=== PATIENT | female | born 1980 | race Caucasian/White ===

== ENCOUNTER 2023-02-22 16:48 | Inpatient (IN) | payer SELFPAY ==
--- NOTE | ~2023-02-22 | CT_ITS ---
EXAMINATION: CT FEMUR LEFT WITH IV CONTRAST CLINICAL INFORMATION: Swelling. Concern for abscess. COMPARISON: None available. TECHNIQUE: Contiguous axial noncontrast CT scan images of the left femur were obtained after the intravenous administration of 85 mL Omnipaque 350. Sagittal and coronal reformatted images also obtained. This CT examination was performed using dose optimization techniques as appropriate, variously including the following: *Automated exposure control *Adjustment of mA and/or kV according to patient size (this includes techniques or standardized protocols for targeted exams where dose is matched to indication/reason for exam; i.e. extremities or head) *Use of iterative reconstruction technique DLP: 371 mGy-cm FINDINGS: The bony structures are within normal limits. The visualized intrapelvic structures are unremarkable. Subcutaneous varices are noted on the left. There is significant skin thickening beginning left mid anterior lateral thigh extending inferiorly to the level of the knee intermixed with varices. There are patchy areas of low density within the areas of skin and subcutaneous thickening with subcutaneous infiltration which is also most pronounced anteriorly and laterally. CT/CT femur LT w IV con IMPRESSION: Extensive skin thickening and subcutaneous infiltration mid to lower anterolateral thigh with patchy areas of low density within the areas of skin thickening and subcutaneous infiltration. Findings are consistent with cellulitis with phlegmon. There are associated left-sided varices along the areas of thickening/cellulitis. Consider ultrasound evaluation to assess for fluid and/or thrombophlebitis. No acute osseous abnormality.
[2023-02-22 17:01] VITALS: BP 122/80; PULSE 110; RESP 16; TEMP 37; O2SAT 97; BMI 26.3
--- NOTE | 2023-02-22 17:06 | ED.GENADULT ---
HPI - General Adult General Chief complaint: Skin/Abscess/Foreign Body Stated complaint: leg pain, doesnt know Time Seen by Provider: 02/22/23 23:20 History of Present Illness HPI narrative: The patient is a 42-year-old woman who uses IV drugs. Over the last several days she has developed a lot of sores to the skin of her left thigh the to her IV drug use. She worries that these could be the result of xylazine use. She was uncertain if she has had a fever prior to coming to the hospital but here she was found to have temperatures as high as 100.7. She says she has pain in the left thigh. She feels that she needs help with her drug abuse. Related Data Home Medications Medication Instructions Recorded Confirmed gabapentin 600 mg tablet 600 mg PO TID 02/23/23 02/23/23 Allergies Allergy/AdvReac Type Severity Reaction Status Date / Time No Known Allergies Allergy Verified 02/22/23 17:01 [No Known Allergies*] Review of Systems Review of Systems: Yes all other systems are reviewed and are negative PMFSH Past Medical History Onset Date is defined in the Problem List Problems that require an onset date and time if occurred within 24 hrs of arrival to the ED Aortic Dissection and Rupture; Neurologic impairment; Cardiopulmonary Arrest; Endotracheal Intubation; Insertion or Replacement of Mechanical Circulatory Assist Device Medical History (Updated 02/23/23 @ 01:43 by Armond Maurer MD) Cocaine use disorder Opioid use disorder Social History Social History Alcohol intake: current Alcohol intake frequency: 3 or more drinks per day Alcohol type: hard liquor Patient Tobacco Use Status: Current everyday Tobacco user Smoked in Last 30 Days: Yes Use of substances other than those prescribed or required for medical reasons: Yes Substance Use Type: Crack/Cocaine and Heroin Substance Use Frequency: Daily Last Used Substance: Hours (ago) Advance Directives: No Advance Directives Information Provided: Yes Nutrition Risks: No Nutritional Risk Patient : No Physical Exam ED Vital Signs: Vital Signs - 24 hr 02/22/23 17:01 02/22/23 20:02 02/22/23 23:42 Temperature 98.6 F 100.8 F H 100.5 F H Pulse Rate 110 H 95 104 H Respiratory Rate 16 18 18 Blood Pressure 122/80 104/79 112/68 Pulse Oximetry 97 97 96 Oxygen Delivery Method Room Air Room Air 02/23/23 00:19 02/23/23 00:34 Temperature 100.7 F H Pulse Rate 100 Respiratory Rate 14 Blood Pressure 90/51 L Pulse Oximetry 95 Oxygen Delivery Method Room Air BMI result Body Mass Index 26.3 Const Other: The patient is a chronically ill-appearing 42-year-old. She is quite disheveled looking. She seems very fatigued. HENMT Other: The face is symmetrical. Mucous membranes moist. Poor dentition. Eyes Other: Pupils are round equal, conjunctivae are clear, extraocular movements intact Neck Neck: Yes no JVD Resp Effort & Inspection: normal respiratory effort Auscultation: clear to auscultation bilaterally Cardio Other: The patient was mildly tachycardic. Otherwise she had a regular rate and rhythm with no murmur. GI Other: Abdomen soft and nontender Skin Other: The patient has a large area of erythema and sores on her left lateral lower thigh just above the knee. These sores are open and oozing purulent material. There is associated cellulitis. There was 1 area of swelling and tenderness that was not ruptured but was fluctuant Neuro Other: The patient was awake and alert. She seems sleepy but coherent. Cranial nerves are grossly intact. She moves her extremities symmetrically. No focal neurologic finding. Extrem Other: The patient has a large area of skin of her left lower lateral thigh which is abnormal with erythema and with several lesions most of which look like abscesses that have spontaneously opened and are draining. There was 1 area of soft tissue swelling and fluctuance which was not open or draining. Course Course Course Narrative: RME- 42 year old female presents for evaluation of wounds to her left thigh and leg. She admits to IV drugs. On exam has multiple abscesses in the area. Plan for labs including blood cultures. The patient is also interested in detox Medications Administered Generic Name Dose Route Start Last Admin Trade Name Freq PRN Reason Stop Dose Admin Acetaminophen 650 mg 02/23/23 00:39 02/23/23 06:28 Acetaminophen 325 Mg Tablet PO 650 mg Q6H PRN Administration Pain, Mild (Pain Scale 1-3) Enoxaparin Sodium 40 mg 02/23/23 00:45 02/23/23 01:45 Enoxaparin Sodium 40 Mg/0.4 Ml Syringe SUBCUT 40 mg BEDTIME NICOLLE Administration Cefepime HCl 2 gm/ Sodium 50 mls @ 100 mls/hr 02/23/23 02:00 02/23/23 04:10 Chloride IV Infused Q8H NICOLLE Infusion Sodium Chloride 3 ml 02/23/23 08:00 02/23/23 07:31 0.9 % Sodium Chloride Flush 3 Ml Syringe IVFLUSH Not Given QSHIFT NICOLLE Discontinued Medications Generic Name Dose Route Start Last Admin Trade Name Freq PRN Reason Stop Dose Admin Sodium Chloride 1,000 mls @ 999 mls/hr 02/23/23 00:38 02/23/23 02:14 Ns IV 02/23/23 01:38 Infused .Q1H1M ONE Infusion Vancomycin HCl 1,000 mg/ 270 mls @ 270 mls/hr 02/23/23 00:38 02/23/23 01:37 Sodium Chloride IV 02/23/23 01:37 Not Given ONCE ONE Vancomycin HCl 1,500 mg/ 500 mls @ 333.333 mls/hr 02/23/23 00:46 02/23/23 03:16 Sodium Chloride IV 02/23/23 02:15 Infused ONCE ONE Infusion Sodium Chloride 1,000 mls @ 999 mls/hr 02/23/23 02:03 02/23/23 03:24 Ns IV 02/23/23 03:03 Infused .Q1H1M ONE Infusion Iohexol 85 ml 02/23/23 01:49 02/23/23 01:50 Iohexol 350 Mg/Ml 100 Ml Infus..Btl IV 02/23/23 01:50 85 ml ONCE ONE Administration Ketorolac Tromethamine 30 mg 02/22/23 23:24 02/22/23 23:56 Ketorolac Tromethamine 30 Mg/Ml Vial IM 02/22/23 23:25 30 mg ONCE ONE Administration Lidocaine HCl 1 appl 02/23/23 00:23 02/23/23 00:40 Lidocaine 4 % Cream Kit TOPICAL 02/23/23 00:24 1 appl ONCE ONE Administration Protocol Lidocaine HCl 2 ml 02/23/23 01:01 02/23/23 01:44 Lidocaine Hcl 2% 2 Ml Vial INFILTRATI 02/23/23 01:02 2 ml ONCE ONE Administration Procedures Abscess I/D Site: lower extremity Side (if applicable): left Local Anesthetic: lidocaine 2% Amount of anesthesia used (mL): 2 Technique: incised with blade Amount of fluid expressed (mL): 10 Sent for culture/gram staining?: Yes Irrigation: No Packing used?: none Medical Decision Making Medical Decision Making [facility] Narrative: The patient is a 42-year-old who injects IV opioids and to recently has developed redness, swelling, and pain as well as what seemed to be multiple adjacent ruptured abscesses. There seemed to be 1 area of swelling which seems like a non ruptured abscess. I performed an incision on this area of swelling after prepping the skin with Betadine and administering 2% lidocaine infiltrated for local anesthesia. An incision made through the center of the swelling released a moderate amount of thin pus. This was cultured The patient had a fever in the emergency room with a temperature of 100.7 degrees. Blood cultures were obtained. A wound culture was obtained. The patient was started on vanc completion. The patient had a CT scan to further evaluate the soft tissues of the leg associated with these abscesses and infection. The patient was started on vancomycin. The patient will be admitted to the hospitalist service. Lab Data 02/23/23 05:58 02/23/23 05:58 Labs: Lab Results 02/22/23 02/22/23 Range/Units 20:30 23:43 WBC 7.1 (4.8-10.8) X10*3/uL RBC 4.24 (4.20-5.50) X10*6/uL Hgb 12.6 (12.0-16.0) g/dl Hct 36.6 L (37.0-47.0) % MCV 86.3 (80.0-98.0) fL MCH 29.7 (27.0-33.0) pg MCHC 34.4 (31.0-35.0) g/dl RDW 12.8 (11.0-16.0) % Plt Count 494 H (160-400) X10*3/uL MPV 9.0 L (9.4-12.3) fL Immature Gran % (Auto) 0.7 H (0.0-0.4) % Neut % (Auto) 66.2 (45-73) % Lymph % (Auto) 21.0 (20-40) % Edgar % (Auto) 9.9 (2-11) % Eos % (Auto) 1.6 (0-4) % Baso % (Auto) 0.6 (0-2) % Lymph # (Auto) 1.5 (1.2-4.9) X10*3/uL Edgar # (Auto) 0.7 (0.1-1.2) X10*3/uL Eos # (Auto) 0.1 (0.0-0.4) X10*3/uL Baso # (Auto) 0.0 (0.0-0.2) X10*3/uL Abs Immat Gran (auto) 0.05 H (0.00-0.03) X10*3/uL Absolute Neuts (auto) 4.7 (2.0-8.3) x10*3/uL Absolute Nucleated RBC 0.000 (0.0-0.012) X10*3/uL Nucleated RBC % (auto) 0.0 (0.0-0.2) /100WBC Smear Tech's Comments VERIFIED Sodium 138 (135-145) mmol/L Potassium 3.3 (3.3-5.1) mmol/L Chloride 105 (96-108) mmol/L Carbon Dioxide 23 (22-29) mmol/L Anion Gap 13 (12-20) BUN 5 L (9-16) mg/dL Creatinine 0.60 (0.5-1.4) mg/dL Estim Creat Clear Calc 95.5 Estimated GFR > 60 Random Glucose 104 (60-115) mg/dL Lactic Acid 1.1 (0.5-2.0) mmol/L Calcium 9.4 (8.4-10.2) mg/dL Total Bilirubin 0.2 (0.0-1.0) mg/dL AST 18 (5-31) U/L ALT 14 (0-31) U/L Alkaline Phosphatase 68 (39-117) U/L Total Creatine Kinase 41 (26-140) U/L C-Reactive Protein 5.54 H (< or = 0.50) mg/dL Total Protein 8.2 H (6.5-8.0) g/dL Albumin 3.6 (3.5-5.0) g/dL Lipase 10 (8-78) U/L Beta HCG, Quant < 2 mIU/mL Urine Opiates Screen POSITIVE H (Not Detect) Urine Fentanyl Screen POSITIVE H (Not Detect) Ur Barbiturates Screen Not Detected (Not Detect) Ur Phencyclidine Scrn Not Detected (Not Detect) Ur Amphetamines Screen Not Detected (Not Detect) U Benzodiazepines Scrn Not Detected (Not Detect) Urine Cocaine Screen POSITIVE H (Not Detect) U Marijuana (THC) Screen Not Detected (Not Detect) Ethyl Alcohol < 10 mg/dL Discharge Plan Discharge Clinical Impression: Cellulitis and abscess of left leg Patient Disposition: Admitted As Inpatient
[2023-02-22 20:02] VITALS: BP 104/79; PULSE 95; RESP 18; TEMP 38.2; O2SAT 97
[2023-02-22 20:38] LABS: Basophils Percent Auto 0.6 % (0-2); Hemoglobin 12.6 g/dl (12.0-16.0); PLT CLUMP 1; Red Cell Distribution Width 12.8 % (11.0-16.0); SCAN SMEAR FLAG 1
[2023-02-22 20:40] LABS: Eosinophils Absolute Auto 0.1 X10*3/uL (0.0-0.4); Eosinophils Percent Auto 1.6 % (0-4); Hematocrit 36.6 % (37.0-47.0); Imm Gran Abs Auto 0.05 X10*3/uL (0.00-0.03); Imm Gran Pct Auto 0.7 % (0.0-0.4); Lymphocytes Absolute Auto 1.5 X10*3/uL (1.2-4.9); MANUAL DIFF FLAG SCAN; Mean Corpuscular HGB Conc 34.4 g/dl (31.0-35.0); Mean Corpuscular Hemoglobin 29.7 pg (27.0-33.0); Mean Corpuscular Volume 86.3 fL (80.0-98.0); Monocytes Absolute Auto 0.7 X10*3/uL (0.1-1.2); Monocytes Percent Auto 9.9 % (2-11); Neutrophils Absolute Auto 4.7 x10*3/uL (2.0-8.3); Neutrophils Percent Auto 66.2 % (45-73); Red Blood Count 4.24 X10*6/uL (4.20-5.50)
[2023-02-22 20:41] LABS: White Blood Count 7.1 X10*3/uL (4.8-10.8)
[2023-02-22 20:50] LABS: Lactic Acid 1.1 mmol/L (0.5-2.0)
[2023-02-22 20:54] LABS: Alanine Aminotransferase 14 U/L (0-31); Albumin Level 3.6 g/dL (3.5-5.0); Alkaline Phosphatase 68 U/L (39-117); Anion Gap 13 (12-20); Aspartate Amino Transferase 18 U/L (5-31); Bilirubin Total 0.2 mg/dL (0.0-1.0); Blood Urea Nitrogen 5 mg/dL (9-16); Calcium 9.4 mg/dL (8.4-10.2); Carbon Dioxide 23 mmol/L (22-29); Chloride 105 mmol/L (96-108); Creatinine Clr Calc Pharmacy 95.5; Estimated Glomerular Filt Rate > 60; Glucose Random 104 mg/dL (60-115); Lipase 10 U/L (8-78); Potassium 3.3 mmol/L (3.3-5.1); Sodium 138 mmol/L (135-145); Total Protein 8.2 g/dL (6.5-8.0)
[2023-02-22 20:58] LABS: Ethanol < 10 mg/dL
[2023-02-22 21:03] LABS: HCG Quantitative < 2 mIU/mL
[2023-02-22 21:10] LABS: Platelet Count 494 X10*3/uL (160-400); SLIDE REVIEW VERIFIED
[2023-02-22 23:42] VITALS: BP 112/68; PULSE 104; RESP 18; TEMP 38.1; O2SAT 96
[2023-02-22 23:55] LABS: Amphetamine Screen Urine Not Detected (Not Detect); Barbiturates, Urine Not Detected (Not Detect); Benzodiazepines Screen Urine Not Detected (Not Detect); Cannabinoid Screen Urine Not Detected (Not Detect); Cocaine Screen Urine POSITIVE (Not Detect); Fentanyl, urine POSITIVE (Not Detect); Opiate Screen Urine POSITIVE (Not Detect); Phencyclidine Screen Urine Not Detected (Not Detect)
[2023-02-22] MEDS: Ketorolac Tromethamine 30 MG/ML VIAL IM (23:56)
[2023-02-23] VITALS (14 sets, daily range): BP systolic 85–123; BP diastolic 51–79; PULSE 74–100; RESP 14–18; TEMP 36.1–38.2; O2SAT 95–99; BMI 27.0
[2023-02-23 00:30] LABS: C Reactive Protein 5.54 mg/dL (< or = 0.50)
[2023-02-23] MEDS: Lidocaine 4 % Cream KIT 1 APPL TOPICAL (00:40)
--- NOTE | 2023-02-23 00:41 | PM.IMHP ---
History of Present Illness Date of Service: 02/23/23 Chief Complaint: Skin infection This is a 42-year-old female with pertinent history of IV drug use disorder who presents to the emergency department for evaluation of skin infections. Patient states that over the last several days she developed multiple wounds/sores over her left thigh which have been draining. On the day of presentation, patient admits fevers and chills along with purulent foul-smelling drainage from her left thigh. Denies skin infection in the past. Also has been having left thigh pain. She states she last used IV drugs on the day of presentation. No chest discomfort, palpitations, shortness of breath, abdominal pain, changes in urinary or bowel habits. In the emergency department, patient was found to be septic and I and D performed by ER physician. Review of Systems Constitutional: Constitutional: Reports chills, Reports fatigue, Reports fever(s) and Reports lethargy Cardiovascular: Cardiovascular: Reports no additional cardiovascular complaints Respiratory: Respiratory: Reports no additional respiratory complaints Gastrointestinal: Gastrointestinal: Reports no additional gastrointestinal complaints Genitourinary: Genitourinary: Reports no additional female genitourinary complaints Endocrine: Endocrine: Reports fatigue [facility] Medical History (Updated 02/23/23 @ 01:43 by Armond Maurer MD) Cocaine use disorder Opioid use disorder Functional capacity: independent ambulation Pertinent family history: No family history of early CAD Social History Alcohol intake: current Alcohol intake frequency: 3 or more drinks per day Alcohol type: hard liquor Patient Tobacco Use Status: Current everyday Tobacco user Smoked in Last 30 Days: Yes Use of substances other than those prescribed or required for medical reasons: Yes Substance Use Type: Crack/Cocaine and Heroin Substance Use Frequency: Daily Last Used Substance: Hours (ago) Advance Directives: No Advance Directives Information Provided: Yes Nutrition Risks: No Nutritional Risk Patient : No Meds Allergies Allergy/AdvReac Type Severity Reaction Status Date / Time No Known Allergies Allergy Verified 02/22/23 17:01 [No Known Allergies*] Active Medications: Current Medications Enoxaparin Sodium (Enoxaparin Sodium 40 Mg/0.4 Ml Syringe) 40 mg SUBCUT Q24H NICOLLE Sodium Chloride (Ns) 1,000 mls @ 999 mls/hr IV .Q1H1M ONE Stop: 02/23/23 01:38 Vancomycin HCl 1,000 mg/ (Sodium Chloride) 270 mls @ 270 mls/hr IV ONCE ONE Stop: 02/23/23 01:37 Pharmacy Consult (Consult Rx Vancomycin Dosing) 1 each MISCELLANE DAILY PRN PRN Reason: Consult order Sodium Chloride (0.9 % Sodium Chloride Flush 3 Ml Syringe) 3 ml IVFLUSH QSHIFT COUNTS INCLUDE 234 BEDS AT THE [facility] Home Medications Medication Instructions Recorded Confirmed Last Taken Type gabapentin 600 mg tablet 600 mg PO TID 02/23/23 02/23/23 Unknown History Physical Exam Vital Signs and Narrative: Vital Signs: Last Vital Signs Temp 100.7 F H 02/23/23 00:40 Pulse 98 02/23/23 00:40 Resp 16 02/23/23 00:40 BP 100/55 L 02/23/23 00:40 Pulse Ox 96 02/23/23 00:40 O2 Del Method Room Air 02/23/23 00:40 BMI result Body Mass Index 26.3 Middle-aged female lying in bed in no distress Neck supple, no JVD Regular rate and rhythm, S1-S2 heard Regular breath sounds bilaterally, no wheezing or crackles appreciated Abdomen soft nontender, no guarding, no rigidity Patient is lethargic but awakens to verbal stimulus, is oriented to self, place, time and person ; no focal deficits Skin colon as pictured below Psych: Drowsy No pedal edema Skin: Other: Results Labs 02/22/23 20:30 02/22/23 20:30 Labs: Laboratory Results - last 24 hr 02/22/23 02/22/23 20:30 23:43 MCV 86.3 MCH 29.7 MCHC 34.4 RDW 12.8 Plt Count 494 H MPV 9.0 L Immature Gran % (Auto) 0.7 H Neut % (Auto) 66.2 Lymph % (Auto) 21.0 [place]morton % (Auto) 9.9 Eos % (Auto) 1.6 Baso % (Auto) 0.6 Lymph # (Auto) 1.5 [place]morton # (Auto) 0.7 Eos # (Auto) 0.1 Baso # (Auto) 0.0 Abs Immat Gran (auto) 0.05 H Absolute Neuts (auto) 4.7 Absolute Nucleated RBC 0.000 Nucleated RBC % (auto) 0.0 Smear Tech's Comments VERIFIED Anion Gap 13 Estim Creat Clear Calc 95.5 Estimated GFR > 60 Random Glucose 104 Lactic Acid 1.1 Calcium 9.4 Total Bilirubin 0.2 AST 18 ALT 14 Alkaline Phosphatase 68 Total Creatine Kinase 41 C-Reactive Protein 5.54 H Total Protein 8.2 H Albumin 3.6 Lipase 10 Beta HCG, Quant < 2 Urine Opiates Screen POSITIVE H Urine Fentanyl Screen POSITIVE H Ur Barbiturates Screen Not Detected Ur Phencyclidine Scrn Not Detected Ur Amphetamines Screen Not Detected U Benzodiazepines Scrn Not Detected Urine Cocaine Screen POSITIVE H U Marijuana (THC) Screen Not Detected Ethyl Alcohol < 10 Assessment and Plan (1) Sepsis due to cellulitis: Status: Acute Plan This is a 42-year-old female with pertinent history of IV drug use disorder who presents to the emergency department for evaluation of skin infections. #. Sepsis due to left thigh purulent cellulitis with underlying abscesses: Resuscitating with IV crystalloids. Initiating empiric IV antibiotics. Lactic acid and blood culture obtained. I&D performed by ER physician. Consulting general surgery #. Opioid and cocaine use disorder: Monitor for withdrawal, consulted Addiction Team DVT prophylaxis: Lovenox Full code Admit as inpatient and will require two night minimum hospital stay for IV antibiotics (as above), which is not possible in a lesser acute setting. Quality Stroke Does the patient have a stroke diagnosis?: No VTE Prior VTE?: No VTE Risk Level:: Medical - moderate - high VTE Device Contraindication: Treatment Not Indicated VTE Drug Contraindication: N/A - Med Ordered
[2023-02-23] MEDS: 0.9 % Sodium Chloride 1,000 ML 999 ML IV ×2 (00:59→02:14)
[2023-02-23] MEDS: vancomycin HCL 1,500 MG in 0.9 % Sodium Chloride 500 ML 333.33 MG IV (01:45)
[2023-02-23] MEDS: Enoxaparin Sodium 40 MG/0.4 ML SYRINGE SUBCUT ×2 (01:45→21:30)
[2023-02-23] MEDS: iohexoL 350 MG/ML 100 ML INFUS..BTL 85 ML IV (01:50)
--- NOTE | 2023-02-23 01:56 | MHC.EDTECH ---
This tech took over care of patient at 0100AM, vitals and rounds completed,Patient's BP is low 86/52 RN and hospitalist aware, repeated and its 93/58 Temp is 99.7 Belonging list completed and copy placed in chart.(All belongings in [facility] ROOM) Patient requested to keep her bra on, patient consented to this tech and [facility] Cristin to check inside bra. At this time I tried to lower the head of the bed and was unable to ,checked for reason there was another patient belongings bag and this tech noticed small baggies with white powder substance. At this time the tech took bag to CC Jaleesa and then went straight to security,as the disposed of substance and then rest of belongings placed in [facility],RN Aurelia was at bedside during this time. Patient was calm and cooperative, and all bed linen was changed and is now sleeping comfortably.
--- NOTE | 2023-02-23 02:39 | MHC.EDTECH ---
Vitals taken BP is 108/77
[2023-02-23] MEDS: cefEPime HCl 2 GM in 0.9 % Sodium Chloride 50 ML IV ×3 (03:31→18:33)
--- NOTE | 2023-02-23 03:43 | PC.NURSE ---
Dr. Lopez informed of patient's BP running soft 85-99/55, P 78, O2 Sat 97% RA. I L of NS bolus administered per MD order with improvement in BP noted 99-106/56, P 78-81, O2 Sat 97% RA.
--- NOTE | 2023-02-23 03:48 | PC.NURSE ---
COWS and CIWA assessments completed, COWS score 1, CIWA score 2, no s/s of active withdrawal noted
--- NOTE | 2023-02-23 06:17 | MHC.EDTECH ---
Hourly rounds and vitals completed, patient has a oral temp of 100.1,RN Aurelia made aware,patient is resting comfortably at this time and call palomino in reach.
--- NOTE | 2023-02-23 06:19 | PC.NURSE ---
T 100.1, BP 106/70, P 81. Patient medicated with Tylenol 650 mg PO. DMildred Lopez notified, no new orders at this time.
[2023-02-23 06:25] LABS: MANUAL DIFF FLAG NO
[2023-02-23 06:28] LABS: Basophils Percent Auto 0.6 % (0-2); Eosinophils Absolute Auto 0.1 X10*3/uL (0.0-0.4); Eosinophils Percent Auto 2.3 % (0-4); Hematocrit 30.8 % (37.0-47.0); Hemoglobin 10.5 g/dl (12.0-16.0); Imm Gran Abs Auto 0.04 X10*3/uL (0.00-0.03); Imm Gran Pct Auto 0.8 % (0.0-0.4); Lymphocytes Absolute Auto 1.4 X10*3/uL (1.2-4.9); Lymphocytes Percent Auto 29.2 % (20-40); Mean Corpuscular HGB Conc 34.1 g/dl (31.0-35.0); Mean Platelet Volume 8.8 fL (9.4-12.3); Monocytes Absolute Auto 0.6 X10*3/uL (0.1-1.2); Monocytes Percent Auto 12.1 % (2-11); Neutrophils Absolute Auto 2.7 x10*3/uL (2.0-8.3); Platelet Count 393 X10*3/uL (160-400); White Blood Count 4.9 X10*3/uL (4.8-10.8)
[2023-02-23] MEDS: Acetaminophen 325 MG TABLET 650 MG PO (06:28)
[2023-02-23 06:41] LABS: Anion Gap 11 (12-20); Blood Urea Nitrogen 5 mg/dL (9-16); Calcium 7.7 mg/dL (8.4-10.2); Carbon Dioxide 22 mmol/L (22-29); Chloride 109 mmol/L (96-108); Creatinine Clr Calc Pharmacy 98.7; Estimated Glomerular Filt Rate > 60; Glucose Random 99 mg/dL (60-115); Potassium 3.4 mmol/L (3.3-5.1); Sodium 139 mmol/L (135-145)
--- NOTE | 2023-02-23 07:26 | PHA.PROG ---
Admission Date/Time: February 23, 2023 00:40 Indication: skin and skin structure Weight in k.967 kg Adjusted body weight in Kg: [place] body weight in Kg: Obesity Dosing Indication % IBW:26.3 kg/m^2 Serum Creatinine - Last 168 Hours 02/22/23 02/23/23 20:30 05:58 Creatinine 0.60 0.58 Estimated CrCl and GFR - Last 168 Hours 02/22/23 02/23/23 20:30 05:58 Estim Creat Clear Calc 95.5 98.7 Estimated GFR > 60 > 60 Vancomycin Loading Dose: 1500mg Current Vancomycin Dosing Regimen: 1000 Q12H Vancomycin Monitoring using AUC goal of 400 - 600 range with trough as surrogate marker: 451 Date and Time for next Vancomycin Level to be drawn: 02/24/23 @1200 Pharmacist Comments on Vancomycin Plan: Predicted trough:12.6 mg/L, will continue to monitor renal function and adjust as necessary. Vancomycin dosing will take advantage of [employer] as a clinical decision support tool that uses Bayesian modeling to calculate individual patient's pharmacokinetic parameters and forecast the patient's drug concentration time course with the target goal AUC 24 range of 400 - 600 mg/L/hr.
--- NOTE | 2023-02-23 07:47 | PHA.MEDREC ---
Pharmacy Consult ? Medication Reconciliation Pharmacy has completed the medication reconciliation. Checked med rec done overnight
--- NOTE | 2023-02-23 07:55 | PC.NURSE ---
assumed care of pt at 0700. pt a&o x4, pleasant, calm, and cooperative. pt woken up for breakfast. temp rechecked post tylenol. 99.8. pt ambulated to bathroom with steady gait, back to bed and hooked back up to bedside monitor. pt asking for belongings. pt told that they are in [place] and she will not be able to obtain them until she is discharged. pt understands and is cooperative. call palomino within reach. plan of care ongoing.
[2023-02-23] MEDS: methADONE HCl 20 MG/2 ML ORAL.CONC PO ×2 (10:49→15:45)
--- NOTE | 2023-02-23 10:58 | P.CONGS_ITS ---
History of Present Illness Consult details Consult date: 02/23/23 Narrative: This is a 42-year-old female with pertinent history of IVDA who presents to the emergency department for evaluation of open wounds of her left upper thigh. Patient states that over the last several days she developed redness and multiple wounds/sores over her left thigh. She does admit to injecting in her left thigh. She has had some purulent drainage from these. She admits to fevers and chills. In the ED, CT left femur was obtained which showed diffuse skin thickening and phlegmon of her anterolateral left thigh. There was one undraining fluctuant area which was incised and drained in the ED. She was admitted to the hospitalist service for further treatment of her left leg cellulitis and sepsis. She is on IV vanco. Review of Systems 2 Constitutional: Constitutional: Reports chills and Reports fever(s) ENT: Denies dizziness Cardiovascular: Cardiovascular: Denies chest pain and Denies dyspnea Respiratory: Respiratory: Denies cough and Denies dyspnea Gastrointestinal: Gastrointestinal: Denies abdominal pain, Denies nausea and Denies vomiting Integumentary/Breasts: Skin/Breast: Reports as per HPI Neurologic: Denies dizziness PMFSH Past Medical History Medical History (Updated 02/23/23 @ 01:43 by Armond Maurer MD) Cocaine use disorder Opioid use disorder Social History Social History Household Members: Other Do you presently have visiting nurse or other home services: No Alcohol intake: current Alcohol intake frequency: 3 or more drinks per day Alcohol type: hard liquor Patient Tobacco Use Status: Current someday Tobacco user Tobacco use type: Cigarette Cigarettes Per Day: 10 Substance Use Type: Crack/Cocaine and Heroin Meds Allergies Allergy/AdvReac Type Severity Reaction Status Date / Time No Known Allergies Allergy Verified 02/22/23 17:01 [No Known Allergies*] Active Medications: Current Medications Acetaminophen (Acetaminophen 325 Mg Tablet) 650 mg PO Q6H PRN PRN Reason: Pain, Mild (Pain Scale 1-3) Last Admin: 02/23/23 06:28 Dose: 650 mg Enoxaparin Sodium (Enoxaparin Sodium 40 Mg/0.4 Ml Syringe) 40 mg SUBCUT BEDTIME [facility] Last Admin: 02/23/23 01:45 Dose: 40 mg Cefepime HCl 2 gm/ Sodium (Chloride) 50 mls @ 100 mls/hr IV Q8H [facility] Last Admin: 02/23/23 10:45 Dose: 100 mls/hr Vancomycin HCl 1,000 mg/ (Sodium Chloride) 270 mls @ 270 mls/hr IV Q12H [facility] Melatonin (Melatonin 3 Mg Tablet) 6 mg PO BEDTIME PRN PRN Reason: Insomnia Ondansetron HCl (Ondansetron Hcl 4 Mg/2 Ml Vial) 4 mg IVPUSH Q8H PRN PRN Reason: Nausea and Vomiting Pharmacy Consult (Consult Rx Vancomycin Dosing) 1 each MISCELLANE DAILY PRN PRN Reason: Consult order Sodium Chloride (0.9 % Sodium Chloride Flush 3 Ml Syringe) 3 ml IVFLUSH QSHIFT [facility] Last Admin: 02/23/23 07:31 Dose: Not Given Home Medications Medication Instructions Recorded Confirmed Last Taken Type gabapentin 600 mg tablet 600 mg PO TID 02/23/23 02/23/23 Unknown History Physical Exam 2 Vital Signs: Vital Signs: Last Vital Signs Temp 99.8 F 02/23/23 07:42 Pulse 81 02/23/23 06:14 Resp 16 02/23/23 06:14 BP 106/70 02/23/23 06:14 Pulse Ox 97 02/23/23 06:14 O2 Del Method Room Air 02/23/23 06:14 BMI result Body Mass Index 26.3 Const: General: comfortable, no acute distress and alert Nutritional Appearance: malnourished and thin Orientation/consciousness: patient oriented x3 Resp: Effort & Inspection: normal respiratory effort Skin: Other: left anterolateral thigh with multiple open sores with surrounding erythema and induration; distally there is an area that was I&D that is opening and draining scant purulence ; no further fluctuance appreciated Neuro: General: patient oriented x3 and moves all extremities Results Labs 02/23/23 05:58 02/23/23 05:58 Labs: Abnormal lab results 02/22/23 02/22/23 02/23/23 Range/Units 20:30 23:43 05:58 RBC 3.50 L (4.20-5.50) X10*6/uL Hgb 10.5 L (12.0-16.0) g/dl Hct 36.6 L 30.8 L (37.0-47.0) % Plt Count 494 H (160-400) X10*3/uL MPV 9.0 L 8.8 L (9.4-12.3) fL Immature Gran % (Auto) 0.7 H 0.8 H (0.0-0.4) % [place]ward % (Auto) 12.1 H (2-11) % Abs Immat Gran (auto) 0.05 H 0.04 H (0.00-0.03) X10*3/uL Chloride 109 H (96-108) mmol/L Anion Gap 11 L (12-20) BUN 5 L 5 L (9-16) mg/dL Calcium 7.7 L D (8.4-10.2) mg/dL C-Reactive Protein 5.54 H (< or = 0.50) mg/dL Total Protein 8.2 H (6.5-8.0) g/dL Urine Opiates Screen POSITIVE H (Not Detect) Urine Fentanyl Screen POSITIVE H (Not Detect) Urine Cocaine Screen POSITIVE H (Not Detect) Short CBC 02/22/23 02/23/23 Range/Units 20:30 05:58 WBC 7.1 4.9 (4.8-10.8) X10*3/uL Hgb 12.6 10.5 L (12.0-16.0) g/dl Hct 36.6 L 30.8 L (37.0-47.0) % Plt Count 494 H 393 (160-400) X10*3/uL BMP 02/22/23 02/23/23 20:30 05:58 Sodium 138 139 Potassium 3.3 3.4 Chloride 105 109 H Carbon Dioxide 23 22 BUN 5 L 5 L Creatinine 0.60 0.58 Calcium 9.4 7.7 L D Cardiac Enzymes 02/22/23 Range/Units 20:30 Total Creatine Kinase 41 (26-140) U/L Liver Function 02/22/23 Range/Units 20:30 Total Bilirubin 0.2 (0.0-1.0) mg/dL AST 18 (5-31) U/L ALT 14 (0-31) U/L Alkaline Phosphatase 68 (39-117) U/L Albumin 3.6 (3.5-5.0) g/dL All other labs normal. Assessment and Plan (1) Cellulitis and abscess of left leg: Status: Acute (2) Opioid use disorder: Status: Acute Plan 42 year old female with hx of IVDA who presents with left thigh cellulitis and abscess after injecting drugs. The open wounds are generally clean appearing and there is currently no further areas of fluctuance that need to be drained. Recommend continuing abx, and daily local wound care. Can cleanse wounds with saline and apply silver alginate to the open more proximal wounds followed by fluffs and kerlix wrap. Change daily. Procedures Date of Service Date of Service: 02/23/23
--- NOTE | 2023-02-23 11:23 | PC.NURSE ---
admission report complete. awaiting transport to inpatient bed.
--- NOTE | 2023-02-23 12:19 | PC.NURSE ---
Pt admitted to 361 from the ER where she presented with left thigh wounds . Pt reports shes homeless and reports daily use of heroin cocaine and alcohol use . Pt oriented to the room and call [facility] system along with unit protocol .
--- NOTE | 2023-02-23 14:32 | PM.EVENT ---
Event Note Date of Service: 02/23/23 Event Note: Chart reviewed patient examined. Now admits to increased amounts of alcohol daily and mild withdrawal symptoms. Has received methadone will start on CIWA protocol/phenobarb protocol and adjust as indicated Time Spent With Patient Time: Total time managing care of this patient today ____ minutes.
--- NOTE | 2023-02-23 14:33 | MHC.CM.PN ---
CM met with pt., she was feeling very sick, so kept it brief. Pt is homeless, she was staying at various friend's places. She said her PCP is at [facility] in [place], CM called to find out who PCP is and pt. is inactive there. She said she has [employer] for ins. Discussed HCP, she is willing to complete one here, can re-approach when she is feeling better. Cm to follow and assist with DC plan.
[2023-02-23] MEDS: PHENobarbitaL sodium 130 MG/ML IM ONCE 184 MG IM (15:24)
[2023-02-23] MEDS: vancomycin HCL 1,000 MG in 0.9 % Sodium Chloride 250 ML 270 MG IV (15:25)
[2023-02-23] MEDS: Gabapentin 600 MG TABLET PO ×2 (15:25→21:29)
[2023-02-23] MEDS: 0.9 % Sodium Chloride Flush 3 ML SYRINGE IVFLUSH ×2 (15:46→21:34)
--- NOTE | 2023-02-23 17:43 | HO.ADDICT_ITS ---
History of Present Illness Date of Service: 02/23/2023 Chief Complaint: Skin Infection Reason for Consult: OUD Requesting physician: Tony Arizmendi HPI Narrative: Patient is a 42 year old female with OUD currently medically admitted with cellulitis of the leg. She reported during ED admission last use was prior to presenting in ED. Seen by this senior writer earlier this am and noted to be resting, woke to voice, but fell back to sleep quickly. Methadone 20mg ordered for when patient awoke. Dose was administered and patient seen later in the afternoon. Awake, alert, appearing uncomfortable. Reporting withdrawal sx. Noted to be slightly restless, diaphoretic, and experiencing chills. She reports using 3 bundles of heroin/fentanyl daily. She also reports drinking daily, although unclear how much or how often. She has been engaged with methadone treatment in the past and reports her therapeutic dose at that time was 75mg. Review of Systems Constitutional: Reports as per HPI, Reports body ache(s), Reports chills and Reports malaise Diagnostics Vital Signs (24Hr): Vital Signs - 24 hr 02/22/23 20:02 02/22/23 23:42 02/23/23 00:19 Temperature 100.8 F H 100.5 F H 100.7 F H Pulse Rate 95 104 H Respiratory Rate 18 18 Blood Pressure 104/79 112/68 Pulse Oximetry 97 96 Oxygen Delivery Method Room Air 02/23/23 00:34 02/23/23 00:40 02/23/23 02:03 Temperature 100.7 F H 99.7 F Pulse Rate 100 98 81 Respiratory Rate 14 16 14 Blood Pressure 90/51 L 100/55 L 86/52 L Pulse Oximetry 95 96 97 Oxygen Delivery Method Room Air Room Air Room Air 02/23/23 02:26 02/23/23 02:38 02/23/23 03:38 Temperature 99.4 F Pulse Rate 78 79 74 Respiratory Rate 14 14 14 Blood Pressure 85/55 L 108/77 106/66 Pulse Oximetry 97 97 97 Oxygen Delivery Method Room Air Room Air Room Air 02/23/23 04:42 02/23/23 06:14 02/23/23 07:42 Temperature 100.1 F 99.8 F Pulse Rate 78 81 Respiratory Rate 14 16 Blood Pressure 96/64 106/70 Pulse Oximetry 97 97 Oxygen Delivery Method Room Air Room Air 02/23/23 12:09 02/23/23 15:19 Temperature 97 F 97.0 F Pulse Rate 78 74 Respiratory Rate 16 18 Blood Pressure 123/65 118/79 Pulse Oximetry 96 99 Oxygen Delivery Method Room Air Room Air BMI result Body Mass Index 27.0 Labs 02/23/23 05:58 02/23/23 05:58 Labs: Laboratory Results - last 48 hr 02/22/23 02/22/23 02/23/23 20:30 23:43 05:58 WBC 7.1 4.9 RBC 4.24 3.50 L Hgb 12.6 10.5 L Hct 36.6 L 30.8 L MCV 86.3 88.0 MCH 29.7 30.0 MCHC 34.4 34.1 RDW 12.8 13.0 Plt Count 494 H 393 MPV 9.0 L 8.8 L Immature Gran % (Auto) 0.7 H 0.8 H Neut % (Auto) 66.2 55.0 Lymph % (Auto) 21.0 29.2 Rhea % (Auto) 9.9 12.1 H Eos % (Auto) 1.6 2.3 Baso % (Auto) 0.6 0.6 Lymph # (Auto) 1.5 1.4 Rhea # (Auto) 0.7 0.6 Eos # (Auto) 0.1 0.1 Baso # (Auto) 0.0 0.0 Abs Immat Gran (auto) 0.05 H 0.04 H Absolute Neuts (auto) 4.7 2.7 Absolute Nucleated RBC 0.000 0.000 Nucleated RBC % (auto) 0.0 0.0 Smear Tech's Comments VERIFIED Sodium 138 139 Potassium 3.3 3.4 Chloride 105 109 H Carbon Dioxide 23 22 Anion Gap 13 11 L BUN 5 L 5 L Creatinine 0.60 0.58 Estim Creat Clear Calc 95.5 98.7 Estimated GFR > 60 > 60 Random Glucose 104 99 Lactic Acid 1.1 Calcium 9.4 7.7 L D Total Bilirubin 0.2 AST 18 ALT 14 Alkaline Phosphatase 68 Total Creatine Kinase 41 C-Reactive Protein 5.54 H Total Protein 8.2 H Albumin 3.6 Lipase 10 Beta HCG, Quant < 2 Urine Opiates Screen POSITIVE H Urine Fentanyl Screen POSITIVE H Ur Barbiturates Screen Not Detected Ur Phencyclidine Scrn Not Detected Ur Amphetamines Screen Not Detected U Benzodiazepines Scrn Not Detected Urine Cocaine Screen POSITIVE H U Marijuana (THC) Screen Not Detected Ethyl Alcohol < 10 Imaging Radiology Impressions: ITS Impressions Femur CT 02/23/23 01:45 IMPRESSION: Extensive skin thickening and subcutaneous infiltration mid to lower anterolateral thigh with patchy areas of low density within the areas of skin thickening and subcutaneous infiltration. Findings are consistent with cellulitis with phlegmon. There are associated left-sided varices along the areas of thickening/cellulitis. Consider ultrasound evaluation to assess for fluid and/or thrombophlebitis. No acute osseous abnormality. Mental Status Exam Mental Status Exam Patient Appearance: Unkempt Level of Consciousness: Awake and Alert Patient Behavior: Appropriate Mood Description: Anxious Affect Description: Anxious Medications Medications Current Medications Acetaminophen (Acetaminophen 325 Mg Tablet) 650 mg PO Q6H PRN PRN Reason: Pain, Mild (Pain Scale 1-3) Last Admin: 02/23/23 06:28 Dose: 650 mg Enoxaparin Sodium (Enoxaparin Sodium 40 Mg/0.4 Ml Syringe) 40 mg SUBCUT BEDTIME [facility] Last Admin: 02/23/23 01:45 Dose: 40 mg Gabapentin (Gabapentin 600 Mg Tablet) 600 mg PO TID [facility] Last Admin: 02/23/23 15:25 Dose: 600 mg Cefepime HCl 2 gm/ Sodium (Chloride) 50 mls @ 100 mls/hr IV Q8H [facility] Last Infusion: 02/23/23 11:54 Dose: Infused Vancomycin HCl 1,000 mg/ (Sodium Chloride) 270 mls @ 270 mls/hr IV Q12H [facility] Last Infusion: 02/23/23 16:52 Dose: Infused Melatonin (Melatonin 3 Mg Tablet) 6 mg PO BEDTIME PRN PRN Reason: Insomnia Methadone HCl (Methadone Hcl 20 Mg/2 Ml Oral.Conc) 50 mg PO DAILY [facility] Ondansetron HCl (Ondansetron Hcl 4 Mg/2 Ml Vial) 4 mg IVPUSH Q8H PRN PRN Reason: Nausea and Vomiting Pharmacy Consult (Consult Rx Vancomycin Dosing) 1 each MISCELLANE DAILY PRN PRN Reason: Consult order Pharmacy Consult (Consult Rx Etoh Phenob Im/Po) 1 each MISCELLANE ONCE PRN; Protocol PRN Reason: Consult order Phenobarbital (Phenobarbital 30 Mg Tablet) 30 mg PO BID [facility] Stop: 02/25/23 21:01 Phenobarbital (Phenobarbital 15 Mg Tablet) 15 mg PO BID [facility] Stop: 02/27/23 21:01 Phenobarbital (Phenobarbital 15 Mg Tablet) 15 mg PO DAILY [facility] Stop: 03/01/23 09:01 Phenobarbital Sodium (Phenobarbital Sodium 130 Mg/Ml Vial Im Q3hx2) 138 mg IM Q3H [facility] Stop: 02/23/23 21:01 Sodium Chloride (0.9 % Sodium Chloride Flush 3 Ml Syringe) 3 ml IVFLUSH QSHIFT [facility] Last Admin: 02/23/23 15:46 Dose: 3 ml Allergies Allergies Allergy/AdvReac Type Severity Reaction Status Date / Time No Known Allergies Allergy Verified 02/22/23 17:01 [No Known Allergies*] Assessment & Plan Assessment & Plan (1) Opioid use disorder: Status: Acute Code(s): F11.90 - Opioid use, unspecified, uncomplicated Assessment and Plan: * total of 40mg methadone today * methadone 50mg in AM (02/24) * senior publications specialist to check in over the wkend. Total time managing care of this patient today ____ minutes. [facility] Past Medical History Medical History (Updated 02/23/23 @ 01:43 by Armond Maurer MD) Cocaine use disorder Opioid use disorder Social History Social History Household Members: Other Do you presently have visiting nurse or other home services: No Alcohol intake: current Alcohol intake frequency: 3 or more drinks per day Alcohol type: hard liquor Patient Tobacco Use Status: Current someday Tobacco user Tobacco use type: Cigarette Cigarettes Per Day: 10 Smoked in Last 30 Days: Yes Use of substances other than those prescribed or required for medical reasons: Yes Substance Use Type: Crack/Cocaine and Heroin Substance Use Frequency: Daily Last Used Substance: Hours (ago) Currently Displaying Signs/Symptoms of Drug Intoxication Withdrawal: No Any prior treatment program specific to substance use: Yes Have you been hit, kicked, punched, or otherwise hurt by someone within the past year? If so, by whom?: No Do you feel safe in your current relationship?: Yes Is there a partner from a previous relationship who is making you feel unsafe now?: No Are you made to feel afraid or neglected: No Advance Directives: No Advance Directives Information Provided: Yes Advance Directives on File: No Do you have thoughts of harming others: None Do you have a plan to hurt others: No Plan Recently lost weight without trying: No Eating poorly because of decreased appetite: Yes Nutrition Risks: No Nutritional Risk Patient : No : No Poor oral hygiene: Yes service: No
[2023-02-23] MEDS: PHENobarbitaL sodium 130 MG/ML VIAL IM Q3Hx2 138 MG IM ×2 (18:33→21:29)
[2023-02-24] VITALS: PULSE 95
[2023-02-24 03:26] VITALS: BP 124/80; PULSE 85; RESP 18; TEMP 36.6; O2SAT 98
[2023-02-24] MEDS: cefEPime HCl 2 GM in 0.9 % Sodium Chloride 50 ML IV ×2 (03:30→09:23)
[2023-02-24] MEDS: vancomycin HCL 1,000 MG in 0.9 % Sodium Chloride 250 ML 270 MG IV (03:31)
[2023-02-24 07:52] VITALS: BP 131/80; PULSE 76; RESP 16; TEMP 36.9; O2SAT 99
[2023-02-24 07:55] LABS: Creatinine Clr Calc Pharmacy 107.4; Estimated Glomerular Filt Rate > 60
[2023-02-24] MEDS: Gabapentin 600 MG TABLET PO ×2 (08:00→14:18)
[2023-02-24] MEDS: methADONE HCl 20 MG/2 ML ORAL.CONC 50 MG PO (08:00)
[2023-02-24] MEDS: PHENobarbitaL 30 MG TABLET PO (08:00)
[2023-02-24] MEDS: 0.9 % Sodium Chloride Flush 3 ML SYRINGE IVFLUSH (08:00)
--- NOTE | 2023-02-24 09:15 | P.PNGS_ITS ---
Subjective Subjective Date of Service: 02/24/23 Interval history: no new complaints left thigh feels better Physical Exam 2 Vital Signs: Vital Signs: Last Vital Signs Temp 98.4 F 02/24/23 07:52 Pulse 76 02/24/23 07:52 Resp 16 02/24/23 07:52 BP 131/80 02/24/23 07:52 Pulse Ox 99 02/24/23 07:52 O2 Del Method Room Air 02/24/23 07:52 BMI result Body Mass Index 27.0 Const: General: comfortable and no acute distress Resp: Effort & Inspection: normal respiratory effort Cardio: Rate: regular rate GI: Palpation (GI): Soft to palpation Extrem: Other: multiple open wounds from skin popping, left thich, clean, no necrotic areas Objective Data Active Medications Acetaminophen (Acetaminophen 325 Mg Tablet) 650 mg PO Q6H PRN PRN Reason: Pain, Mild (Pain Scale 1-3) Last Admin: 02/23/23 06:28 Dose: 650 mg Documented By: JOE Enoxaparin Sodium (Enoxaparin Sodium 40 Mg/0.4 Ml Syringe) 40 mg SUBCUT BEDTIME [facility] Last Admin: 02/23/23 21:30 Dose: 40 mg Documented By: FERNY Gabapentin (Gabapentin 600 Mg Tablet) 600 mg PO TID [facility] Last Admin: 02/24/23 08:00 Dose: 600 mg Documented By: ELBA Cefepime HCl 2 gm/ Sodium (Chloride) 50 mls @ 100 mls/hr IV Q8H [facility] Last Infusion: 02/24/23 04:36 Dose: Infused Documented By: FERNY Vancomycin HCl 1,000 mg/ (Sodium Chloride) 270 mls @ 270 mls/hr IV Q12H [facility] Last Infusion: 02/24/23 04:48 Dose: Infused Documented By: FERNY Melatonin (Melatonin 3 Mg Tablet) 6 mg PO BEDTIME PRN PRN Reason: Insomnia Methadone HCl (Methadone Hcl 20 Mg/2 Ml Oral.Conc) 50 mg PO DAILY [facility] Last Admin: 02/24/23 08:00 Dose: 50 mg Documented By: ELBA Ondansetron HCl (Ondansetron Hcl 4 Mg/2 Ml Vial) 4 mg IVPUSH Q8H PRN PRN Reason: Nausea and Vomiting Pharmacy Consult (Consult Rx Vancomycin Dosing) 1 each MISCELLANE DAILY PRN PRN Reason: Consult order Pharmacy Consult (Consult Rx Etoh Phenob Im/Po) 1 each MISCELLANE ONCE PRN; Protocol PRN Reason: Consult order Phenobarbital (Phenobarbital 30 Mg Tablet) 30 mg PO BID [facility] Stop: 02/25/23 21:01 Last Admin: 02/24/23 08:00 Dose: 30 mg Documented By: ELBA Phenobarbital (Phenobarbital 15 Mg Tablet) 15 mg PO BID [facility] Stop: 02/27/23 21:01 Phenobarbital (Phenobarbital 15 Mg Tablet) 15 mg PO DAILY [facility] Stop: 03/01/23 09:01 Sodium Chloride (0.9 % Sodium Chloride Flush 3 Ml Syringe) 3 ml IVFLUSH QSHIFT [facility] Last Admin: 02/24/23 08:00 Dose: 3 ml Documented By: ELBA Labs 02/23/23 05:58 02/24/23 07:37 Labs: Laboratory Results - last 24 hr 02/24/23 07:37 Estim Creat Clear Calc 107.4 Estimated GFR > 60 Microbiology Microbiology Results: Microbiology 02/23/23 00:34 Blood Culture - Preliminary Blood - Venous No growth after 24 hours. 02/22/23 20:30 Blood Culture - Preliminary Blood - Venous No growth after 24 hours. 02/23/23 01:58 Gram Stain - Final Leg - Left Procedures Date of Service Date of Service: 02/24/23 Progress Note: A&P Assessment and plan (1) Cellulitis and abscess of left leg: Status: Acute Assessment and Plan: now has open wounds, clean, multiple I changed her dressings - applied silver alginate wound care abx treatment cellulitis better Time Spent With Patient Time: Total time managing care of this patient today ____ minutes. Quality Stroke Does the patient have a stroke diagnosis?: No VTE Prior VTE?: No VTE Risk Level:: Medical - moderate - high VTE Device Contraindication: Treatment Not Indicated VTE Drug Contraindication: N/A - Med Ordered
--- NOTE | 2023-02-24 09:29 | PC.NURSE ---
MD Weinstein did wound care for patient.
[2023-02-24 12:21] LABS: Vancomycin Random 6.7 mcg/mL (15-20)
--- NOTE | 2023-02-24 12:26 | PC.NURSE ---
Pt wanting to leave AMA and use street drugs. MD notified and Addiction RN notified. awaiting new orders.
[2023-02-24] MEDS: HYDROmorphone HCl 1 MG/ML SYRINGE IVPUSH (12:34)
--- NOTE | 2023-02-24 13:07 | HE.PHANOTE ---
RE: VANCO Random came back as 6.7 mg/L so dose was increased to 1250 mg q12h (based on predicted AUC of 458 mg/L.hr and trough of 11.4 mg/L), starting on 02/24/23 @1400. Next random is scheduled for 02/25/23 @1200.
[2023-02-24] MEDS: vancomycin HCL 1,250 MG in 0.9 % Sodium Chloride 250 ML 166.67 MG IV (13:13)
--- NOTE | 2023-02-24 13:51 | HO.PM.IMPN ---
Subjective Subjective Date of Service: 02/24/23 Interval History: Notes withdrawal from opiates worse. .. Methadone and sufficient to cover Review of Systems Denies chest pain Denies shortness of breath Denies nausea vomiting diarrhea Denies fever chills Physical Exam Vital Signs: Vital Signs: Last Vital Signs Temp 98.4 F 02/24/23 07:52 Pulse 76 02/24/23 07:52 Resp 16 02/24/23 07:52 BP 131/80 02/24/23 07:52 Pulse Ox 99 02/24/23 07:52 O2 Del Method Room Air 02/24/23 07:52 BMI result Body Mass Index 27.0 Const: Other: Awake and comfortable appearing Resp: Other: Clear to auscultation bilaterally no rales rhonchi or wheezes Cardio: Other: No S4; positive S1-S2; no S3 murmurs rubs or gallops GI: Other: Soft nontender nondistended normoactive bowel sounds Skin: Other: left anterolateral thigh with multiple open sores with surrounding erythema and induration; distally there is an area that was I&D that is opening and draining scant purulence ; no further fluctuance appreciated Extrem: Other: See admission photos Objective Data Active Medications Acetaminophen (Acetaminophen 325 Mg Tablet) 650 mg PO Q6H PRN PRN Reason: Pain, Mild (Pain Scale 1-3) Last Admin: 02/23/23 06:28 Dose: 650 mg Documented By: JOE Enoxaparin Sodium (Enoxaparin Sodium 40 Mg/0.4 Ml Syringe) 40 mg SUBCUT BEDTIME [facility] Last Admin: 02/23/23 21:30 Dose: 40 mg Documented By: FERNY Gabapentin (Gabapentin 600 Mg Tablet) 600 mg PO TID [facility] Last Admin: 02/24/23 08:00 Dose: 600 mg Documented By: ELBA Hydromorphone HCl (Hydromorphone Hcl 1 Mg/Ml Syringe) 1 mg IVPUSH Q3H PRN; Protocol PRN Reason: Pain, Severe (Pain Scale 7-10) Last Admin: 02/24/23 12:34 Dose: 1 mg Documented By: ELBA Cefepime HCl 2 gm/ Sodium (Chloride) 50 mls @ 100 mls/hr IV Q8H [facility] Last Infusion: 02/24/23 10:07 Dose: Infused Documented By: ELBA Vancomycin HCl 1,250 mg/ (Sodium Chloride) 250 mls @ 166.667 mls/hr IV Q12H [facility] Last Admin: 02/24/23 13:13 Dose: 166.67 mls/hr Documented By: ELBA Melatonin (Melatonin 3 Mg Tablet) 6 mg PO BEDTIME PRN PRN Reason: Insomnia Methadone HCl (Methadone Hcl 20 Mg/2 Ml Oral.Conc) 50 mg PO DAILY [facility] Last Admin: 02/24/23 08:00 Dose: 50 mg Documented By: ELBA Ondansetron HCl (Ondansetron Hcl 4 Mg/2 Ml Vial) 4 mg IVPUSH Q8H PRN PRN Reason: Nausea and Vomiting Pharmacy Consult (Consult Rx Vancomycin Dosing) 1 each MISCELLANE DAILY PRN PRN Reason: Consult order Pharmacy Consult (Consult Rx Etoh Phenob Im/Po) 1 each MISCELLANE ONCE PRN; Protocol PRN Reason: Consult order Phenobarbital (Phenobarbital 30 Mg Tablet) 30 mg PO BID [facility] Stop: 02/25/23 21:01 Last Admin: 02/24/23 08:00 Dose: 30 mg Documented By: ELBA Phenobarbital (Phenobarbital 15 Mg Tablet) 15 mg PO BID [facility] Stop: 02/27/23 21:01 Phenobarbital (Phenobarbital 15 Mg Tablet) 15 mg PO DAILY [facility] Stop: 03/01/23 09:01 Sodium Chloride (0.9 % Sodium Chloride Flush 3 Ml Syringe) 3 ml IVFLUSH QSHIFT [facility] Last Admin: 02/24/23 08:00 Dose: 3 ml Documented By: ELBA Labs 02/23/23 05:58 02/24/23 07:37 Labs: Laboratory Results - last 24 hr 02/24/23 02/24/23 07:37 11:47 Estim Creat Clear Calc 107.4 Estimated GFR > 60 Random Vancomycin 6.7 L Microbiology Microbiology Results: Microbiology 02/23/23 01:58 Gram Stain - Final Leg - Left Routine Culture - Preliminary No growth to date. 02/23/23 00:34 Blood Culture - Preliminary Blood - Venous No growth after 24 hours. 02/22/23 20:30 Blood Culture - Preliminary Blood - Venous No growth after 24 hours. Assessment and Plan (1) Sepsis due to cellulitis: Status: Acute (2) Cellulitis and abscess of left leg: Status: Acute (3) Opioid use disorder: Status: Acute Plan This is a 42-year-old female with pertinent history of IV drug use disorder who presents to the emergency department for evaluation of skin infections. 1.Sepsis(resolved); left thigh purulent cellulitis with underlying abscesses -abscess drained in ER -vanco/cefepime(2) -adjust based on cultures 2.Opioid/cocaine/alcohol use disorder -observe on CIWA scale -phenobarbital protocol -methadone 50 mg daily. . . Dilaudid 1 mg IV q.4h for breakthrough Lovenox Full code Will require ongoing hospitalization for IV antibiotics to treat left thigh purulent cellulitis pending cultures and ID Quality Stroke Does the patient have a stroke diagnosis?: No VTE Prior VTE?: No VTE Risk Level:: Medical - moderate - high VTE Device Contraindication: Treatment Not Indicated VTE Drug Contraindication: N/A - Med Ordered
--- NOTE | 2023-02-24 16:34 | MHC.RECOVRN ---
Met with pt around 1200 to follow up after receiving 50 mg methadone this morning and pt reporting desire to conduct self directed discharge. Pt visibly uncomfortable, diaphoretic, restless, reporting feeling hot/cold, and loose stool. Notified provider, pt received 1 mg dilaudid at 1234. Returned to assess pt at 1430, pt continues to be visibly uncomfortable and expressing desire to discharge. Pt reports dilaudid helped for about 30 mins. Provider then entered the room, discussed options with pt. Pt was agreeable to additional 25 mg methadone. Pt dc prior to receiving any additional medications.
--- NOTE | 2023-09-11 14:28 | P.DS_ITS ---
DS: Providers Provider Date of Service: 09/11/23 Date of admission: 02/23/23 00:40 Date of discharge: 02/24/23 Primary care physician: Unknown Physician Consults: 02/23/23 00:41 Addiction Medicine Routine Consulting Provider: Addiction Covering Reason for consultation: opioid use disorder 02/23/23 05:56 Consult to General Surgery [place]ine Consulting Provider[place] [facility] [place] [facility] Reason for consultation: cellulitis with abscess and phlegmon DS: Diagnosis Discharge Diagnosis (1) Sepsis due to cellulitis: Status: Acute (2) Cellulitis and abscess of left leg: Status: Acute (3) Opioid use disorder: Status: Acute DS: Summary Hospital Course Hospital Course: This is a 42-year-old female with pertinent history of IV drug use disorder who presents to the emergency department for evaluation of skin infections. Patient states that over the last several days she developed multiple wounds/sores over her left thigh which have been draining. On the day of presentation, patient admits fevers and chills along with purulent foul-smelling drainage from her left thigh. Denies skin infection in the past. Also has been having left thigh pain. She states she last used IV drugs on the day of presentation. No chest discomfort, palpitations, shortness of breath, abdominal pain, changes in urinary or bowel habits. In the emergency department, patient was found to be septic and I and D performed by ER physician. Hospital course Admitted from the emergency room. Seen in a.m.. Shortly thereafter patient left AMA out the back stairwell to go use street drugs Time Attestation Discharge Coordination Time (in mins): 35 Quality: Safe Use of Opioids Does Pt have an Active Cancer Diagnosis on the Problem List?: No Quality: Stroke Does the patient have a stroke diagnosis?: No Physical Exam Vital Signs: Vital Signs: Last Vital Signs Temp 98.4 F 02/24/23 07:52 Pulse 76 02/24/23 07:52 Resp 16 02/24/23 07:52 BP 131/80 02/24/23 07:52 Pulse Ox 99 02/24/23 07:52 O2 Del Method Room Air 02/24/23 07:52 BMI result Body Mass Index 27.0 DS: Data Data Completed and Pending Completed studies during hospitalization [Text1]: Procedures Detoxification Services for Substance Abuse Treatment (02/23/23) Drainage of Left Lower Leg, Open Approach (02/23/23) Discharge Plan Discharge Patient Disposition: Left Against Medical Advice Discharge Diagnosis: Cellulitis Referrals: Physician,Unknown J [Primary Care Provider] - 1 Week Discharge Medications: No Action gabapentin 600 mg Tablet 600 mg PO TID Discharge Orders: Discharge Order (Routine); Ordered 09/11/23 Ordered By: Tony Arizmendi Print Language: Slovenian Care Plan Goals: AMA Health Concerns: AMA Plan of Treatment: AMA Assessment: AMA Discharge Date/Time: 02/24/23 15:03
== END 2023-02-24 15:03 | disposition left against medical advice (07) | DRG 872 ==
LOC: HO.ED 02-23 01:43 → HO.EDOVER 02-23 02:04 → HO.S3 02-23 11:06
PROVIDERS: Physician Assistant; Admitting Provider Student in an Organized Health Care Education/Training Program; Emergency Provider Emergency Medicine; Visit Provider Hospitalist
DX: A41.9 Sepsis, unspecified organism (principal); L02.416 Cutaneous abscess of left lower limb; L03.116 Cellulitis of left lower limb; F11.93 Opioid use, unspecified with withdrawal; F17.210 Nicotine dependence, cigarettes, uncomplicated; Z71.6 Tobacco abuse counseling; Z79.899 Other long term (current) drug therapy; F10.90 Alcohol use, unspecified, uncomplicated; F14.90 Cocaine use, unspecified, uncomplicated
CPT/HCPCS: 36415; 73701; 80048; 80053; 80202; 80307; 82550; 82565; 83605; 83690; 84702; 85025; 86140; 87040; 87070; 87205; 99285; J0692; J1170; J1650; J1885; J2560; J3370; J3371; Q9967

== ENCOUNTER → 2023-02-23 00:40 | Outpatient (BNV) | payer SELFPAY | PROVIDERS: Admitting Provider Student in an Organized Health Care Education/Training Program; Emergency Provider Emergency Medicine; Visit Provider Nurse Practitioner Psychiatric/Mental Health | DX: F11.90 Opioid use, unspecified, uncomplicated (principal) | CPT/HCPCS: 99222 ==

== ENCOUNTER → 2023-02-23 00:40 | Outpatient (BNV) | payer SELFPAY | PROVIDERS: Admitting Provider Student in an Organized Health Care Education/Training Program; Emergency Provider Emergency Medicine; Visit Provider Surgery | DX: L03.116 Cellulitis of left lower limb (principal); L02.416 Cutaneous abscess of left lower limb; F11.90 Opioid use, unspecified, uncomplicated | CPT/HCPCS: 99222; 99232 ==

== ENCOUNTER → 2023-02-23 00:40 | Outpatient (BNV) | payer SELFPAY | PROVIDERS: Admitting Provider Student in an Organized Health Care Education/Training Program; Emergency Provider Emergency Medicine; Visit Provider Student in an Organized Health Care Education/Training Program | DX: L03.90 Cellulitis, unspecified (principal); A41.9 Sepsis, unspecified organism; L03.116 Cellulitis of left lower limb; L02.416 Cutaneous abscess of left lower limb; F11.90 Opioid use, unspecified, uncomplicated | CPT/HCPCS: 99222; 99233; 99499 ==

== ENCOUNTER 2023-08-20 18:36 | Emergency (ER) | payer MEDICAID, SELFPAY ==
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
[2023-08-20 19:08] VITALS: BP 144/100; PULSE 128; RESP 19; TEMP 37.2; O2SAT 97; BMI 29.9
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
[2023-08-20] MEDS: LORazepam 1 MG TABLET 2 MG PO (21:58)
[2023-08-20 22:02] VITALS: BP 115/79; PULSE 88; RESP 16; TEMP 36.9; O2SAT 98
--- NOTE | 2023-08-20 22:07 | PC.NURSE ---
Spoke to patient's significant other Toño, gave update, Toño to come visit patient.
--- NOTE | 2023-08-20 22:08 | PC.NURSE ---
Patient prefers to stay in her own clothing. Food / beverages given.
[2023-08-21 00:26] VITALS: PULSE 76; RESP 16
[2023-08-21 04:05] VITALS: BP 107/77; PULSE 75; RESP 15; TEMP 36.9; O2SAT 98
[2023-08-21 06:22] LABS: UPreg QC Valid YES; Urine Pregnancy NEGATIVE (NEGATIVE)
[2023-08-21 06:23] VITALS: BP 123/71; PULSE 76; RESP 18; O2SAT 98
[2023-08-21 06:29] LABS: Amphetamine Screen Urine Not Detected (Not Detect); Barbiturates, Urine Not Detected (Not Detect); Benzodiazepines Screen Urine Not Detected (Not Detect); Buprenorphine Scr Positive (Not Detect); Cannabinoid Screen Urine Not Detected (Not Detect); Cocaine Screen Urine POSITIVE (Not Detect); Fentanyl, urine POSITIVE (Not Detect); Methadone Screen, Urine Not Detected (Not Detect); Opiate Screen Urine POSITIVE (Not Detect); Oxycodone Screen Urine Not Detected (Not Detect); Phencyclidine Screen Urine Not Detected (Not Detect)
--- NOTE | 2023-08-21 06:31 | PC.NURSE ---
pt resting comfortably throughout the night, breathing even and unlabored, no apparent distress. no needs expressed at this time. call palomino w/in reach
[2023-08-21 08:23] VITALS: BP 88/60; PULSE 89; RESP 16; TEMP 37.3; O2SAT 96
--- NOTE | 2023-08-21 09:11 | MHC.RECOVRN ---
Addendum entered by Polly Fuller 08/21/23 09:51: Met with pt in ED21 after pt expressed interest in [facility]. Pt laying in bed, eyes closed, wakes to voice, keeps eyes closed throughout conversation. Pt reports release from senior living on Sunday, had been there 3 months and was on Subutex. Since Sunday, pt reports using cocaine, INH, 7 grams. Pt reports using heroin/fentanyl, 2 bags daily, IN. Reports 10 nips daily vodka. Pt denies questions or concerns at this time. Original Note: Pts referral sent to [facility].
[2023-08-21 10:04] VITALS: BP 131/93; PULSE 125; RESP 16; TEMP 36.8; O2SAT 99
--- NOTE | 2023-08-21 11:34 | MHC.RECOVRN ---
Pt accepted to [facility] pending phone screen.
[2023-08-21 11:59] VITALS: BP 125/82; PULSE 107; RESP 12; TEMP 36.9; O2SAT 95
--- NOTE | 2023-08-21 12:00 | MHC.RECOVRN ---
Pt declined [facility]. Pt reports she needs to meet with her hotel security officer prior to going to [facility]. Pt plans to follow up with [facility] for [facility]. Denies questions or concerns for t/w. Provider aware.
[2023-08-21] MEDS: Acetaminophen 325 MG TABLET 975 MG PO (12:07)
== END 2023-08-21 12:12 | disposition home or self-care (01) ==
PROVIDERS: Emergency Provider Emergency Medicine
DX: S39.012A Strain of muscle, fascia and tendon of lower back, initial encounter (principal); F11.10 Opioid abuse, uncomplicated; M54.2 Cervicalgia; R51.9 Headache, unspecified; F17.210 Nicotine dependence, cigarettes, uncomplicated; V43.52XA Car driver injured in collision with other type car in traffic accident, initial encounter; Y93.9 Activity, unspecified; Y92.488 Other paved roadways as the place of occurrence of the external cause; Y99.8 Other external cause status; Z79.899 Other long term (current) drug therapy
CPT/HCPCS: 70450; 72125; 80307; 81025; 99284

== ENCOUNTER 2023-11-24 02:44 | Emergency (ER) | payer MEDICAID, SELFPAY ==
[2023-11-24 02:52] VITALS: BP 108/76; PULSE 104; RESP 16; TEMP 37; O2SAT 98; BMI 31.4
--- NOTE | 2023-11-24 04:52 | ED.GENADULT ---
HPI - General Adult General Chief complaint: ETOH/Substance Use Stated complaint: gen med Time Seen by Provider: 11/24/23 04:58 Source: patient Mode of arrival: ambulatory Limitations: no limitations History of Present Illness ED Provider: Dr. Jones HPI narrative: Patient is a 43yo female with a history of polysubstance abuse on methadone who presents with recent use of alcohol and crack. She was kicked out of where she lives. She comes to the ED for detox. Related Data Home Medications ?Medication ?Instructions ?Recorded ?Confirmed gabapentin 600 mg tablet 600 mg PO TID 02/23/23 02/23/23 Allergies Allergy/AdvReac Type Severity Reaction Status Date / Time No Known Allergies Allergy Verified 11/24/23 02:56 [No Known Allergies*] Review of Systems Review of Systems: Yes all other systems are reviewed and are negative Neurologic: Denies Sensory deficit (Neuro) [facility] Past Medical History Medical History Cocaine use disorder Opioid use disorder Social History Social History Household Members: Other Do you presently have visiting nurse or other home services: No Alcohol intake: current Alcohol intake frequency: 0-2 drinks per day Alcohol type: beer Patient Tobacco Use Status: Current someday Tobacco user Tobacco use type: Cigarette Cigarettes Per Day: 10 Smoked in Last 30 Days: Yes Use of substances other than those prescribed or required for medical reasons: Yes Substance Use Type: Crack/Cocaine and Heroin Substance Use Frequency: Recent Binge Advance Directives: No Advance Directives Information Provided: No Do you have a plan to hurt others: No Plan Patient : No service: No Physical Exam ED Vital Signs: Vital Signs - 24 hr 11/24/23 02:52 11/24/23 06:15 Temperature 98.6 F 97.7 F Pulse Rate 104 H 79 Respiratory Rate 16 16 Blood Pressure 108/76 96/62 Pulse Oximetry 98 96 Oxygen Delivery Method Room Air Room Air BMI result Body Mass Index 31.4 Const Other: female looking older than stated age resting comfortably Nutritional Appearance: average body habitus Orientation/consciousness: oriented to person and patient oriented x3 Limitations: no limitations HENMT Head: Yes normal to inspection Ears: external ears normal General nose exam: Normal external nose present Mouth: Normal oral and palatal mucosa present and oropharynx normal Throat: Yes posterior oropharynx normal Eyes General: appearance normal, both eyes and all related structures Neck Neck: Yes normal visual inspection Chest Chest palpation & inspection: normal inspection of the chest Resp Auscultation: clear to auscultation bilaterally Cardio Jugular venous distension: no JVD Rate: regular rate Rhythm: regular rhythm Heart sounds: S1 normal heart sound present and S2 normal heart sound present GI Inspection: Yes normal to inspection Palpation (GI): Soft to palpation, nontender and No hepatosplenomegaly present Auscultation: normal bowel sounds General: Yes no CVA tenderness Back/Spine/Pelvis Back: no CVA tenderness Skin General skin exam: no rashes or lesions noted Neuro General: oriented to person and patient oriented x3 Cranial nerves: Yes CN's II-XII intact bilaterally Motor exam (neuro): 5/5 motor strength present throughout Sensory Exam: No Sensory deficit (Neuro) Extrem General: Yes normal to inspection Psych Appearance: grossly normal Course Reevaluation(s) Reevaluation #1: at this time patient placed in physician observation. Patient to be evaluated by care team in regards to her cocaine and alcoholism. at this time patient is resting comfortably Time: 07:35 Medical Decision Making Lab Data 11/24/23 05:26 11/24/23 05:26 Labs: Lab Results 11/24/23 Range/Units 05:26 WBC 8.1 (4.8-10.8) X10*3/uL RBC 4.03 L (4.20-5.50) X10*6/uL Hgb 12.4 (12.0-16.0) g/dl Hct 35.7 L (37.0-47.0) % MCV 88.6 (80.0-98.0) fL MCH 30.8 (27.0-33.0) pg MCHC 34.7 (31.0-35.0) g/dl RDW 13.2 (11.0-16.0) % Plt Count 288 D (160-400) X10*3/uL MPV 8.7 L (9.4-12.3) fL Immature Gran % (Auto) 0.4 (0.0-0.4) % Neut % (Auto) 45.0 (45-73) % Lymph % (Auto) 39.6 (20-40) % [place] % (Auto) 8.4 (2-11) % Eos % (Auto) 5.6 H (0-4) % Baso % (Auto) 1.0 (0-2) % Lymph # (Auto) 3.2 (1.2-4.9) X10*3/uL [place] # (Auto) 0.7 (0.1-1.2) X10*3/uL Eos # (Auto) 0.5 H (0.0-0.4) X10*3/uL Baso # (Auto) 0.1 (0.0-0.2) X10*3/uL Abs Immat Gran (auto) 0.03 (0.00-0.03) X10*3/uL Absolute Neuts (auto) 3.7 (2.0-8.3) x10*3/uL Absolute Nucleated RBC 0.000 (0.0-0.012) X10*3/uL Nucleated RBC % (auto) 0.0 (0.0-0.2) /100WBC Sodium 138 (135-145) mmol/L Potassium 3.4 (3.3-5.1) mmol/L Chloride 110 H (96-108) mmol/L Carbon Dioxide 21 L (22-29) mmol/L Anion Gap 10 L (12-20) BUN 14 (9-16) mg/dL Creatinine 0.69 (0.5-1.4) mg/dL Estim Creat Clear Calc 89.8 Estimated GFR > 60 Random Glucose 101 (60-115) mg/dL Calcium 8.8 D (8.4-10.2) mg/dL Ethyl Alcohol < 10 mg/dL Discharge Plan Discharge Clinical Impression: Opioid use disorder, Cocaine use disorder, Alcoholic intoxication Patient Disposition: Still a Patient Prescriptions: No Action gabapentin 600 mg Tablet 600 mg PO TID Print Language: Scottish
[2023-11-24 05:34] LABS: MANUAL DIFF FLAG NO
[2023-11-24 05:37] LABS: Basophils Absolute Auto 0.1 X10*3/uL (0.0-0.2); Eosinophils Absolute Auto 0.5 X10*3/uL (0.0-0.4); Eosinophils Percent Auto 5.6 % (0-4); Hematocrit 35.7 % (37.0-47.0); Hemoglobin 12.4 g/dl (12.0-16.0); Imm Gran Abs Auto 0.03 X10*3/uL (0.00-0.03); Imm Gran Pct Auto 0.4 % (0.0-0.4); Lymphocytes Absolute Auto 3.2 X10*3/uL (1.2-4.9); Lymphocytes Percent Auto 39.6 % (20-40); Mean Corpuscular HGB Conc 34.7 g/dl (31.0-35.0); Mean Corpuscular Hemoglobin 30.8 pg (27.0-33.0); Mean Corpuscular Volume 88.6 fL (80.0-98.0); Mean Platelet Volume 8.7 fL (9.4-12.3); Monocytes Absolute Auto 0.7 X10*3/uL (0.1-1.2); Monocytes Percent Auto 8.4 % (2-11); Neutrophils Absolute Auto 3.7 x10*3/uL (2.0-8.3); Platelet Count 288 X10*3/uL (160-400); Red Blood Count 4.03 X10*6/uL (4.20-5.50); Red Cell Distribution Width 13.2 % (11.0-16.0); White Blood Count 8.1 X10*3/uL (4.8-10.8)
[2023-11-24 05:54] LABS: Anion Gap 10 (12-20); Blood Urea Nitrogen 14 mg/dL (9-16); Calcium 8.8 mg/dL (8.4-10.2); Carbon Dioxide 21 mmol/L (22-29); Chloride 110 mmol/L (96-108); Creatinine Clr Calc Pharmacy 89.8; Estimated Glomerular Filt Rate > 60; Ethanol < 10 mg/dL; Glucose Random 101 mg/dL (60-115); Potassium 3.4 mmol/L (3.3-5.1); Sodium 138 mmol/L (135-145)
[2023-11-24 06:15] VITALS: BP 96/62; PULSE 79; RESP 16; TEMP 36.5; O2SAT 96
--- NOTE | 2023-11-24 08:20 | MHC.RECOVRN ---
Per MAIK Goodwin at [facility] [address], Hiral was last dosed 95mg of Methadone on 11/22/2023 at 11am. Methadone verification form filled and sent to pharmacy.
--- NOTE | 2023-11-24 08:32 | HE.PHANOTE ---
re methadone last dose 95 mg given 11/22/23 @11 am @[facility]
--- NOTE | 2023-11-24 08:40 | MHC.EDTECH ---
this tech provided pt with some food per RN orders,pt is resting quietly and tolerating well
--- NOTE | 2023-11-24 08:42 | MHC.RECOVRN ---
Met with patient in ED22H for ATS consult. Pt reported she relapsed on crack cocaine and alcohol 2 days ago while at the [facility]. Pt reported she smoked a couple grams of cocaine and had a 2 cans of 4locos and 4 nips of vodka. Pt is also on methadone 95mg (verified:last dosed on 11/22/2023, 11am per MAIK Goodwin at [facility]). Pt is afraid to leave because she is worried she will go back to the streets and get dope and per pt I know I'm going to overdose out there . Pt denies SI/HI (no plan or intent). Pt wants to go to detox as, before her recent relapse, she had been sober for 80 days. Pt does not want to go to [facility] as per pt she wants to stay away from the area of [place]. Pt agrees for ATS referrals to be sent to other facilities.
[2023-11-24] MEDS: methADONE HCl 20 MG/2 ML ORAL.CONC 95 MG PO (09:03)
[2023-11-24 09:26] LABS: Amphetamine Screen Urine Not Detected (Not Detect); Barbiturates, Urine Not Detected (Not Detect); Benzodiazepines Screen Urine Not Detected (Not Detect); Buprenorphine Scr Not Detected (Not Detect); Cannabinoid Screen Urine Not Detected (Not Detect); Cocaine Screen Urine POSITIVE (Not Detect); Fentanyl, urine POSITIVE (Not Detect); Methadone Screen, Urine Positive (Not Detect); Opiate Screen Urine POSITIVE (Not Detect); Oxycodone Screen Urine Not Detected (Not Detect); Phencyclidine Screen Urine Not Detected (Not Detect)
--- NOTE | 2023-11-24 11:15 | PC.NURSE ---
Patient walked over to POD without incident, [facility] accepting.
--- NOTE | 2023-11-24 11:31 | PC.NURSE ---
Assumed care of patient at 1115, patient brought over from main ED, offers no complaints to this RN. Pt changed over to pod appropriate attire and provided with food/drinks. Pt is a detox bedsearch at this time
--- NOTE | 2023-11-24 11:46 | MHC.RECOVRN ---
Addendum entered by Prosper Hall RN 11/24/23 14:53: Given pt being (+) for fentanyl, opiates, etc. on drug screen, referrals sent to both CSS and ATS with pt's permission.? (Important consideration: CSS programs typically do not admit patients on the weekend)? Per Jose Francisco admission senior lead project manager at [facility] there are no female CSS or ATS? beds available today. Will call back if openings occur. Per Daniele from centralized admissions at [facility] there are no female CSS or ATS beds available today. Will call back if openings occur. ATS referral sent to [facility] - per [facility] staff there are no ATS beds available today. Will reach out if openings occur.? Original Note: Since pt is not actively in withdrawals CSS options were reviewed with pt. Pt said that she does not mind going locally for CSS/treatment as long as it's not [facility] . CSS referrals faxed to: [facility], [facility], [facility], [facility], [facility], Latrice Glass [facility], [facility], [facility] for review. Successful Fax receipts received from: [facility] (10:50am), [facility] (11:12am), [facility] (11:01am), [facility] (11:09am), [facility] (11:05am), [facility] Ordoñeza [facility] (11:26am), [facility] (11:34am),[facility] (11:36). TW will follow-up via phone call.
--- NOTE | 2023-11-24 15:45 | MHC.RECOVRN ---
Pt accepted at [facility]. phone interview was successful and pt is expected there before 6pm [facility]. Pt will be transported there via Lyft after pt calls her boyfriend who will help her retrieve her belongings from [facility].
[2023-11-24 16:29] VITALS: BP 109/77; PULSE 74; RESP 14; TEMP 36.6; O2SAT 100
--- NOTE | 2023-11-24 16:38 | MHC.RECOVRN ---
Pt just departed via Lyft. 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
== END 2023-11-24 16:31 | disposition other institution (70) ==
PROVIDERS: Emergency Provider Emergency Medicine; PCP Nurse Practitioner Family
DX: F11.10 Opioid abuse, uncomplicated (principal); F10.120 Alcohol abuse with intoxication, uncomplicated; Y90.0 Blood alcohol level of less than 20 mg/100 ml; F14.10 Cocaine abuse, uncomplicated; F19.10 Other psychoactive substance abuse, uncomplicated; Z79.899 Other long term (current) drug therapy
CPT/HCPCS: 36415; 80048; 80307; 85025; 99284; 99285

== ENCOUNTER 2023-12-19 23:26 | Emergency (ER) | payer MEDICAID, SELFPAY ==
[2023-12-19 23:35] VITALS: BP 121/87; PULSE 80; RESP 16; TEMP 36.6; O2SAT 99; BMI 32.3
[2023-12-20 00:27] LABS: Amphetamine Screen Urine Not Detected (Not Detect); Barbiturates, Urine Not Detected (Not Detect); Benzodiazepines Screen Urine Not Detected (Not Detect); Buprenorphine Scr Not Detected (Not Detect); Cannabinoid Screen Urine Not Detected (Not Detect); Cocaine Screen Urine POSITIVE (Not Detect); Ethanol < 10 mg/dL; Fentanyl, urine POSITIVE (Not Detect); Methadone Screen, Urine Positive (Not Detect); Opiate Screen Urine Not Detected (Not Detect); Oxycodone Screen Urine Not Detected (Not Detect); Phencyclidine Screen Urine Not Detected (Not Detect)
[2023-12-20 01:23] VITALS: BP 103/73; PULSE 79; RESP 20; TEMP 36.7; O2SAT 98
[2023-12-20 04:00] VITALS: BP 126/85; PULSE 70; RESP 16; TEMP 36.6; O2SAT 99
--- NOTE | 2023-12-20 06:41 | ED.MEDCLEAR ---
HPI - Medical Clearance General Chief complaint: Medical Clearance Stated complaint: Medical Clearance Time Seen by Provider: 12/20/23 06:20 Source: patient Mode of arrival: ambulatory Limitations: no limitations History of Present Illness ED Provider: Dr. Ector Mishra HPI Narrative: 43-year-old female with a history of polysubstance use disorder and IV drug use disorder who presents emergency department for evaluation of medical clearance to get back into her sober house. The patient states that she relapsed and drank alcohol. She also states she smoked crack cocaine. The patient states that in order to get back into her sober house she needs to be medically cleared. Patient states that she also has a rash in her groin area and wants to be evaluated for this rash. She denied fever, chills, chest pain, shortness of breath, nausea, vomiting, diarrhea, myalgias arthralgias Related Information Home Medications ?Medication ?Instructions ?Recorded ?Confirmed gabapentin 600 mg tablet 600 mg PO TID 02/23/23 02/23/23 clonidine HCl 0.1 mg tablet 0.1 mg PO TID 11/24/23 11/24/23 docusate sodium 100 mg capsule 100 mg PO BID 11/24/23 11/24/23 methadone 10 mg/mL oral 95 mg PO DAILY 11/24/23 11/24/23 concentrate (Methadone Intensol) prazosin 2 mg capsule 2 mg PO BID 11/24/23 11/24/23 topiramate 25 mg tablet 25 mg PO DAILY 11/24/23 11/24/23 Previous Rx's ?Medication ?Instructions ?Recorded nystatin 100,000 unit/gram topical 1 appl topical BID 2 weeks #30 12/20/23 ointment grams Allergies Allergy/AdvReac Type Severity Reaction Status Date / Time No Known Allergies Allergy Verified 12/19/23 23:36 [No Known Allergies*] Review of Systems Review of Systems: Yes all other systems are reviewed and are negative PMFSH Past Medical History PMFSH Narrative: Social history: She states she does smoke cigarettes and she relapsed and drank alcohol and smoked crack cocaine Medical History Cocaine use disorder Opioid use disorder Social History Social History Household Members: Other Do you presently have visiting nurse or other home services: No Alcohol intake: current Alcohol intake frequency: 0-2 drinks per day Alcohol type: beer Patient Tobacco Use Status: Current someday Tobacco user Tobacco use type: Cigarette Cigarettes Per Day: 10 Smoked in Last 30 Days: Yes Substance Use Type: Crack/Cocaine Substance Use Frequency: Chronic Longstanding Last Used Substance: Hours (ago) Any prior treatment program specific to substance use: Yes Advance Directives: No Do you have a plan to hurt others: No Plan Patient : No service: No Physical Exam Vital Signs: Vital Signs: Last Vital Signs Temp 97.9 F 12/20/23 07:16 Pulse 70 12/20/23 07:16 Resp 18 12/20/23 07:16 BP 126/85 12/20/23 07:16 Pulse Ox 99 12/20/23 07:16 O2 Del Method Room Air 12/20/23 07:16 BMI result Body Mass Index 32.3 Vital signs were normal Exam: General: Awake, alert in no distress Head: Normocephalic, atraumatic EENT: PERRL, Lids normal, sclera normal, conjunctiva normal, nose normal , ears normal, throat without erythema or exudates Neck: Supple, no adenopathy Lung: breath sounds symmetric, no wheezing, rales or rhonchi Chest: symmetric movement, nontender Heart: regular rate and rhythm, normal S1, S2 no murmurs or rubs Abdomen: soft, non-tender, nondistended, normal bowel sounds Back: no vertebral tenderness, no CVAT Extremities: no deformities, moves all extremities symmetrically Skin: Patient has a intertriginous fungal infection below her pannus and groin area there is breakdown of the skin, there is a fungal discharge, no evidence for cellulitis Neuro: Awake, alert, oriented, normal speech, cranial nerves intact, moves all extremities symmetrically Psych: Pleasant, cooperative Medical Decision Making Medical Decision Making MDM Narrative: 43-year-old female with a history of polysubstance use disorder and IV drug use disorder who presents emergency department for evaluation of medical clearance to get back into her sober house. The patient states that she relapsed and drank alcohol. She also states she smoked crack cocaine. The patient states that in order to get back into her sober house she needs to be medically cleared. Patient states that she also has a rash in her groin area and wants to be evaluated for this rash. Vital signs were unremarkable. Physical examination was consistent with a an intertriginous fungal infection underneath her pannus and in the groin area. Differential diagnosis: ?Includes but is not limited to cocaine use, opiate use, alcohol intoxication, cellulitis, intertriginous fungal infection Course: My interpretation patient's laboratory evaluation is as follows: Urine drug screen was positive friend fentanyl and cocaine. Patient's alcohol level was below detectable limits. Patient was medically cleared to return to her sober house. Patient was started on nystatin ointment b.i.d. x2 weeks for her intertriginous groin infection. Lab Data MDM Lab Attestation statement: I reviewed the patient's lab results. Labs: Lab Results 12/20/23 Range/Units 00:08 Urine Opiates Screen Not Detected (Not Detect) Ur Buprenorphine Scrn Not Detected (Not Detect) ng/mL Ur Oxycodone Screen Not Detected (Not Detect) ng/mL Urine Methadone Screen Positive H (Not Detect) ng/mL Urine Fentanyl Screen POSITIVE H (Not Detect) Ur Barbiturates Screen Not Detected (Not Detect) Ur Phencyclidine Scrn Not Detected (Not Detect) Ur Amphetamines Screen Not Detected (Not Detect) U Benzodiazepines Scrn Not Detected (Not Detect) Urine Cocaine Screen POSITIVE H (Not Detect) U Marijuana (THC) Screen Not Detected (Not Detect) Ethyl Alcohol < 10 mg/dL External Record Review External record reviewed: Inpatient record Prescription Management I considered prescription management with: Other (Antifungal cream: Nystatin ointment) Chronic Conditions Patient?s care impacted by: Other (Polysubstance use disorder) Discharge Plan Discharge Clinical Impression: Cocaine use disorder, Intertriginous candidiasis Patient Disposition: Home, Self-Care Additional Instructions: Your medically cleared to return to your sober house Your urine tox screen was positive for methadone, fentanyl and cocaine Your alcohol level was below detectable limits Your rash in your lower groin area is due to a fungal infection from this area being moist. Important to wash this area and dry it at least twice a day. Apply nystatin ointment twice a day for 2 weeks. Continue your medications as prescribed by your providers Follow-up with your doctor in 2 days. Please return to the emergency department if your symptoms get worse or if you develop any symptoms that are concerning to you. Prescriptions: New nystatin 100,000 unit/gram ointment 1 appl topical BID 14 Days Qty: 30 1RF No Action methadone [Methadone Intensol] 10 mg/mL Concentrate 95 mg PO DAILY clonidine HCl 0.1 mg tablet 0.1 mg PO TID topiramate 25 mg tablet 25 mg PO DAILY docusate sodium 100 mg capsule 100 mg PO BID prazosin 2 mg capsule 2 mg PO BID gabapentin 600 mg Tablet 600 mg PO TID Interventions: ED Discharge Assessment Last Done: 12/20/23 07:16 Discharge Date/Time: 12/20/23 07:16 Print Language: Eritrean
[2023-12-20 07:16] VITALS: BP 126/85; PULSE 70; RESP 18; TEMP 36.6; O2SAT 99
== END 2023-12-20 07:16 | disposition home or self-care (01) ==
PROVIDERS: Emergency Provider Emergency Medicine Emergency Medical Services; PCP Nurse Practitioner Family
DX: F14.10 Cocaine abuse, uncomplicated (principal); B37.2 Candidiasis of skin and nail; Z79.899 Other long term (current) drug therapy; F17.210 Nicotine dependence, cigarettes, uncomplicated
CPT/HCPCS: 36415; 80307; 99284

== ENCOUNTER 2024-08-27 10:52 | Emergency (ER) | payer MEDICAID, SELFPAY ==
[2024-08-27] VITALS (26 sets, daily range): BP systolic 57–130; BP diastolic 34–83; PULSE 44–67; RESP 8–14; TEMP 36–36.6; O2SAT 97–100; BMI 23.7
--- NOTE | 2024-08-27 | ECG_ITS ---
Test Reason : HYPOTENSIVE Blood Pressure : */* mmHG Vent. Rate : 59 BPM Atrial Rate : 59 BPM P-R Int : 130 ms QRS Dur : 72 ms QT Int : 500 ms P-R-T Axes : 19 2 3 degrees QTcB Int : 495 ms Sinus bradycardia Minimal voltage criteria for LVH, may be normal variant ( R in aVL ) Prolonged QT Abnormal ECG When compared with ECG of 12-Oct-2018 12:09, T wave amplitude has decreased in Anterolateral leads QT has lengthened Referred By: Ector Mishra Electronically Signed By: Juan F Hill
--- NOTE | ~2024-08-27 | XR_ITS ---
EXAMINATION: XR CHEST 1 VIEW HISTORY: Somnolent, hypotensive, R/O pneumonia COMPARISON: Comparison is made with the prior examination dated 03/31/2018. FINDINGS: A single AP portable view of the chest performed at 20:19 p.m. is submitted. There are low lung volumes. The lungs are clear. There is no pleural effusion, pneumothorax, or pulmonary vascular congestion. The heart is normal in size. The bones are intact. XR/XR chest 1V IMPRESSION: Low lung volumes. No acute cardiopulmonary abnormality. Electronically signed by: Lamine Russo MD 08/27/2024 12:22 PM EDT
--- NOTE | 2024-08-27 11:17 | ED.GENADULT ---
HPI - General Adult General Chief complaint: General Medical Stated complaint: FEELING TIRED,TOOK METHADONE TODAY PER EMS Time Seen by Provider: 08/27/24 11:00 Source: EMS Mode of arrival: ambulatory Limitations: altered mental status History of Present Illness ED Provider: Dr. Ector Mishra HPI narrative: 43-year-old female with a history of polysubstance use disorder and IV drug use disorder who presents emergency department for evaluation of altered mental status. Information came from the paramedics. The patient was found sitting and leaning against a building. She told 1st responders that she had slept in days. The patient had just gone to the methadone clinic earlier in the morning. Paramedics state that in route the patient is awake alert and talkative but when the patient got to emergency department she had became somnolent. She is arousable to painful stimuli but falls back asleep when not stimulated. Initial blood pressure was low 86/40.. Related Data Home Medications ?Medication ?Instructions ?Recorded ?Confirmed gabapentin 600 mg tablet 600 mg PO TID 02/23/23 02/23/23 clonidine HCl 0.1 mg tablet 0.1 mg PO TID 11/24/23 11/24/23 docusate sodium 100 mg capsule 100 mg PO BID 11/24/23 11/24/23 methadone 10 mg/mL oral 95 mg PO DAILY 11/24/23 11/24/23 concentrate (Methadone Intensol) prazosin 2 mg capsule 2 mg PO BID 11/24/23 11/24/23 topiramate 25 mg tablet 25 mg PO DAILY 11/24/23 11/24/23 Previous Rx's ?Medication ?Instructions ?Recorded nystatin 100,000 unit/gram topical 1 appl topical BID 2 weeks #30 12/20/23 ointment grams Allergies Allergy/AdvReac Type Severity Reaction Status Date / Time No Known Allergies (No Known Allergy Verified 08/27/24 11:06 Allergies*) [facility] Past Medical History Medical History Cocaine use disorder Opioid use disorder Social History Social History Household Members: Other Do you presently have visiting nurse or other home services: No Alcohol intake: current Alcohol intake frequency: 0-2 drinks per day Alcohol type: beer Patient Tobacco Use Status: Current someday Tobacco user Tobacco use type: Cigarette Cigarettes Per Day: 10 Use of substances other than those prescribed or required for medical reasons: Yes Substance Use Type: Crack/Cocaine Substance Use Frequency Other:: pt on methadone, currently denies using other substances Advance Directives: No Advance Directives Information Provided: No Do you have a plan to hurt others: No Plan service: No Physical Exam ED Vital Signs: Vital Signs - 24 hr 08/28/24 01:11 08/28/24 06:14 08/28/24 06:23 Temperature 98.6 F 98.7 F 98.7 F Pulse Rate 61 58 58 Respiratory Rate 16 16 16 Blood Pressure 108/81 100/65 100/65 Pulse Oximetry 97 96 96 Oxygen Delivery Method Room Air Room Air Room Air BMI result Body Mass Index 23.7 Exam: General: Somnolent but arousable to painful stimuli Head: Normocephalic, atraumatic EENT: Pupils 1 mm, minimally reactive, Lids normal, sclera normal, conjunctiva normal, nose normal , ears normal, throat without erythema or exudates Neck: Supple, no adenopathy Lung: breath sounds symmetric, no wheezing, rales or rhonchi Chest: symmetric movement, nontender Heart: regular rate and rhythm, normal S1, S2 no murmurs or rubs Abdomen: soft, non-tender, nondistended, normal bowel sounds Extremities: Multiple track brothers Neuro: Somnolent, not arousable to verbal stimuli, responsive to painful stimuli, withdraws to pain Medications Administered Discontinued Medications Generic Name Dose Route Start Last Admin Trade Name Rodolfoq PRN Reason Stop Dose Admin Ceftriaxone Sodium 1 gm 08/27/24 12:27 08/27/24 13:11 Ceftriaxone Sodium 1 Gm Vial IVPUSH 08/27/24 12:28 1 gm ONCE ONE Administration Sodium Chloride 1,000 mls @ 999 mls/hr 08/27/24 11:17 08/27/24 12:07 Ns IV 08/27/24 12:17 Infused .Q1H1M STA Infusion Sodium Chloride 1,000 mls @ 999 mls/hr 08/27/24 11:31 08/27/24 12:08 Ns IV 08/27/24 12:31 Infused .Q1H1M STA Infusion Sodium Chloride 1,000 mls @ 999 mls/hr 08/27/24 12:27 08/27/24 13:45 Ns IV 08/27/24 13:27 Infused .Q1H1M STA Infusion Naloxone HCl 8 mg 08/27/24 16:08 08/27/24 17:33 Naloxone Hcl Nasal Take Home 4 Mg [place] NOSTRILALT 08/27/24 16:09 8 mg ONCE ONE Administration Medical Decision Making Medical Decision Making [facility] Narrative: 43-year-old female with a history of polysubstance use disorder and IV drug use disorder who presents emergency department for evaluation of altered mental status. Information came from the paramedics. The patient was found sitting and leaning against a building. She told 1st responders that she had not slept in days. Paramedics report that she had used benzodiazepines. The patient had just gone to the methadone clinic earlier in the morning. Paramedics state that in route the patient is awake alert and talkative but when the patient got to emergency department she had became somnolent. She is arousable to painful stimuli but falls back asleep when not stimulated. Initial blood pressure was low 86/40. Patient was somnolent, not arousable to verbal stimuli but arousable to painful stimuli. Pupils were small but reactive. Exam was otherwise unremarkable. Differential diagnosis: ?Includes but is not limited to polysubstance use, urinary tract infection, pneumonia, electrolyte abnormalities, anemia Course: 11:34 Given her initial presentation of being arousable and then somnolent I suspect that the patient may have narcosis from her methadone dose and may have taken other drugs in his well prior to coming to the emergency department. I ordered the following: CBC, BNP, liver panel, CRP, ESR, BNP, CK, magnesium, lactic acid, TSH with reflex T4, VBG, blood cultures x2, straight cath urinalysis, beta-hCG drug screen urine, ethanol level. Patient was treated with normal saline IV x2 L. Patient had difficult access secondary to your IV drug use and Dr. Pike was able to put in an ultrasound-guided line into the patient's right arm. 16:02 My interpretation patient's laboratory evaluation is as follows: CBC was normal. VBG was normal. CMP was unremarkable. ESR was normal, CRP was normal. Troponin was below detectable limits. TSH was normal. Beta-hCG test was negative. Urinalysis was concentrated and positive for nitrates. Microscopic revealed 0-2 RBCs, 0-5 WBCs, 3-5 squamous cells and 4+ bacteria patient was given ceftriaxone 1 g IV for possible urinary tract infection alcohol was below detectable limits. Urine tox screen was positive for opiates, methadone, fentanyl, benzodiazepines and cocaine. The patient received 3 L of fluid IV in his currently awake and alert and at her baseline. She denies using any drugs after getting her methadone in his not certain why she was unresponsive. Given her significantly positive urine drug screen I suspect that she may have used benzodiazepines after getting her methadone. I do not think that the patient's presentation and urine microscopic were due to a urinary tract infection and I do not think that she needs oral antibiotics. Patient was able to eat and drink therefore she Thu's discharged home. Patient was given a intranasal Narcan rescue pack with instructions. Time: 17:19 Date: 08/27/24 Provider: Ector Mishra MD Patient in physician observation for detox placement.?When the nurse went to discharge the patient, the patient requested evaluation for detox. I did consult recovery team and they will do a detox bed search for the patient. There is not a bed available this evening and the patient will be kept in the emergency department until detox bed can be obtained. We will monitor the patient in the ED until disposition can be determined. Patient is awake, alert and oriented x3, patient no longer wants detox. Patient would like to be discharged home. Physician observation ended at 01:10 on 08/28/2024 Admission/Observation Consideration of admission/observation: Escalation of care including admission/observation considered (Yes) Lab Data MDM Lab Attestation statement: I reviewed the patient's lab results. 08/27/24 11:27 08/27/24 11:27 Labs: Lab Results 08/27/24 08/27/24 08/27/24 Range/Units 11:27 11:28 11:29 WBC 5.7 (4.8-10.8) X10*3/uL RBC 4.22 (4.20-5.50) X10*6/uL Hgb 13.3 (12.0-16.0) g/dl Hct 38.4 (37.0-47.0) % MCV 91.0 (80.0-98.0) fL MCH 31.5 (27.0-33.0) pg MCHC 34.6 (31.0-35.0) g/dl RDW 13.2 (11.0-16.0) % Plt Count 329 (160-400) X10*3/uL MPV 10.2 (9.4-12.3) fL Immature Gran % (Auto) 0.2 (0.0-0.4) % Neut % (Auto) 52.6 (45-73) % Lymph % (Auto) 36.7 (20-40) % Garrard % (Auto) 6.2 (2-11) % Eos % (Auto) 3.4 (0-4) % Baso % (Auto) 0.9 (0-2) % Lymph # (Auto) 2.1 (1.2-4.9) X10*3/uL Garrard # (Auto) 0.4 (0.1-1.2) X10*3/uL Eos # (Auto) 0.2 (0.0-0.4) X10*3/uL Baso # (Auto) 0.1 (0.0-0.2) X10*3/uL Abs Immat Gran (auto) 0.01 (0.00-0.03) X10*3/uL Absolute Neuts (auto) 3.0 (2.0-8.3) x10*3/uL Absolute Nucleated RBC 0.000 (0.0-0.012) X10*3/uL Nucleated RBC % (auto) 0.0 (0.0-0.2) /100WBC ESR 18 (0-20) MM/HR VBG pH (7.32-7.43) VBG pCO2 mmHg VBG pO2 mmHg VBG HCO3 (22-26) mmol/L VBG O2 Saturation % VBG Base Excess mmol/L Sodium 141 (135-145) mmol/L Potassium 3.7 (3.3-5.1) mmol/L Chloride 111 H (96-108) mmol/L Carbon Dioxide 24 (22-29) mmol/L Anion Gap 10 L (12-20) BUN 11 (9-16) mg/dL Creatinine 0.60 (0.5-1.4) mg/dL Estim Creat Clear Calc 103.3 Estimated GFR > 60 Random Glucose 104 (60-115) mg/dL Lactic Acid 1.2 (0.5-2.0) mmol/L Calcium 9.1 (8.4-10.2) mg/dL Magnesium 2.2 (1.6-2.6) mg/dL Total Bilirubin 0.4 (0.0-1.0) mg/dL Direct Bilirubin 0.2 (0.0-0.5) mg/dL AST 40 H (5-31) U/L ALT 23 (0-31) U/L Alkaline Phosphatase 60 (39-117) U/L Total Creatine Kinase 58 (26-140) U/L Troponin I High Sens < 2.7 (<3.5-17.0) ng/L C-Reactive Protein 0.10 (< or = 0.50) mg/dL B-Natriuretic Peptide 41 (<100) pg/mL Total Protein 7.7 (6.5-8.0) g/dL Albumin 3.9 (3.5-5.0) g/dL TSH 0.82 (0.32-4.0) uIU/mL Beta HCG, Quant < 2 mIU/mL Urine Color Dark Yellow Urine Appearance Clear Urine pH 6.0 (5.0-9.0) Ur Specific Alleman >= 1.030 H (1.005-1.025) Urine Protein Trace (Neg-Trace) mg/dL Urine Glucose (UA) Negative (Negative) mg/dL Urine Ketones Trace (Negative) mg/dL Urine Blood Negative (Negative) Urine Nitrite Positive H (Negative) Ur Leukocyte Esterase Negative (Negative) Urine RBC 0-2 (0-2) /HPF Urine WBC 0-5 (0-5) /HPF Ur Squamous Epith Cells 3-5 (0-2) /HPF Calcium Oxalate Crystal Present Urine Bacteria 4+ (None Seen) Hyaline Casts 3-5 (0-2) /LPF Urine Opiates Screen POSITIVE H (Not Detect) Ur Buprenorphine Scrn Not Detected (Not Detect) ng/mL Ur Oxycodone Screen Not Detected (Not Detect) ng/mL Urine Methadone Screen Positive H (Not Detect) ng/mL Urine Fentanyl Screen POSITIVE H (Not Detect) Ur Barbiturates Screen Not Detected (Not Detect) Ur Phencyclidine Scrn Not Detected (Not Detect) Ur Amphetamines Screen Not Detected (Not Detect) U Benzodiazepines Scrn POSITIVE H (Not Detect) Urine Cocaine Screen POSITIVE H (Not Detect) U Marijuana (THC) Screen Not Detected (Not Detect) Ethyl Alcohol < 10 mg/dL 08/27/24 Range/Units 11:38 WBC (4.8-10.8) X10*3/uL RBC (4.20-5.50) X10*6/uL Hgb (12.0-16.0) g/dl Hct (37.0-47.0) % MCV (80.0-98.0) fL MCH (27.0-33.0) pg MCHC (31.0-35.0) g/dl RDW (11.0-16.0) % Plt Count (160-400) X10*3/uL MPV (9.4-12.3) fL Immature Gran % (Auto) (0.0-0.4) % Neut % (Auto) (45-73) % Lymph % (Auto) (20-40) % Garrard % (Auto) (2-11) % Eos % (Auto) (0-4) % Baso % (Auto) (0-2) % Lymph # (Auto) (1.2-4.9) X10*3/uL Garrard # (Auto) (0.1-1.2) X10*3/uL Eos # (Auto) (0.0-0.4) X10*3/uL Baso # (Auto) (0.0-0.2) X10*3/uL Abs Immat Gran (auto) (0.00-0.03) X10*3/uL Absolute Neuts (auto) (2.0-8.3) x10*3/uL Absolute Nucleated RBC (0.0-0.012) X10*3/uL Nucleated RBC % (auto) (0.0-0.2) /100WBC ESR (0-20) MM/HR VBG pH 7.35 (7.32-7.43) VBG pCO2 50 mmHg VBG pO2 65 mmHg VBG HCO3 28 H (22-26) mmol/L VBG O2 Saturation 91.0 % VBG Base Excess 2.1 mmol/L Sodium (135-145) mmol/L Potassium (3.3-5.1) mmol/L Chloride (96-108) mmol/L Carbon Dioxide (22-29) mmol/L Anion Gap (12-20) BUN (9-16) mg/dL Creatinine (0.5-1.4) mg/dL Estim Creat Clear Calc Estimated GFR Random Glucose (60-115) mg/dL Lactic Acid (0.5-2.0) mmol/L Calcium (8.4-10.2) mg/dL Magnesium (1.6-2.6) mg/dL Total Bilirubin (0.0-1.0) mg/dL Direct Bilirubin (0.0-0.5) mg/dL AST (5-31) U/L ALT (0-31) U/L Alkaline Phosphatase (39-117) U/L Total Creatine Kinase (26-140) U/L Troponin I High Sens (<3.5-17.0) ng/L C-Reactive Protein (< or = 0.50) mg/dL B-Natriuretic Peptide (<100) pg/mL Total Protein (6.5-8.0) g/dL Albumin (3.5-5.0) g/dL TSH (0.32-4.0) uIU/mL Beta HCG, Quant mIU/mL Urine Color Urine Appearance Urine pH (5.0-9.0) Ur Specific Alleman (1.005-1.025) Urine Protein (Neg-Trace) mg/dL Urine Glucose (UA) (Negative) mg/dL Urine Ketones (Negative) mg/dL Urine Blood (Negative) Urine Nitrite (Negative) Ur Leukocyte Esterase (Negative) Urine RBC (0-2) /HPF Urine WBC (0-5) /HPF Ur Squamous Epith Cells (0-2) /HPF Calcium Oxalate Crystal Urine Bacteria (None Seen) Hyaline Casts (0-2) /LPF Urine Opiates Screen (Not Detect) Ur Buprenorphine Scrn (Not Detect) ng/mL Ur Oxycodone Screen (Not Detect) ng/mL Urine Methadone Screen (Not Detect) ng/mL Urine Fentanyl Screen (Not Detect) Ur Barbiturates Screen (Not Detect) Ur Phencyclidine Scrn (Not Detect) Ur Amphetamines Screen (Not Detect) U Benzodiazepines Scrn (Not Detect) Urine Cocaine Screen (Not Detect) U Marijuana (THC) Screen (Not Detect) Ethyl Alcohol mg/dL Independent Interpretation I performed an independent interpretation of an: EKG Interpretation: My independent interpretation patient's 12 EKG done on 08/27/2024 at 11:05 hours is as follows: Sinus bradycardia with a rate of 59, normal MS interval, QRS duration and prolonged QTC of 495 milliseconds-most likely secondary to methadone use. No ST segment elevation, no ST segment depression, no significant T-wave abnormalities, no PACs, no PVCs. My independent interpretation patient's one-view chest x-ray is as follows: No acute disease Radiology Impression Discussion of test interpretation with radiology: I have reviewed the radiologist's reading. Radiologist Impression: XR chest 1V IMPRESSION: Low lung volumes. No acute cardiopulmonary abnormality. Electronically signed by: Lamine Russo MD 08/27/2024 12:22 PM EDT External Record Review External record reviewed: Inpatient record Chronic Conditions Patient?s care impacted by: Other (Polysubstance use disorder) Critical Care Time Critical Care Time Critical Care Time: Yes Total Critical Care Time: 80 Attestation: Critical Care: The patient was critically ill with a high probability of imminent or life threatening deterioration. I spent greater than 30 minutes of discontinuous time evaluating the patient,delivering critical care at the bedside, discussing and evaluating pertinent data with consultants. Critical care time does not include time spent performing separately billable procedures or teaching. Total time spent performing critical care was 80 minutes. Discharge Plan Discharge Clinical Impression: Acute alteration in mental status, Polysubstance use disorder, Acute hypotension Patient Disposition: Home, Self-Care Additional Instructions: After you received your methadone dose, you were found sitting on the ground lying against a wall and you were unresponsive. Here in the emergency department you had a low blood pressure and you were very difficult to wake up even with painful stimulation. Your blood work was unremarkable. Your urine tox screen was positive for methadone, opiates, fentanyl, benzodiazepines and cocaine. You should talk to methadone clinic about getting more help with your drug use disorder. Your are being discharged home with intranasal Narcan. If you are going to continue to use heroin/street drug, you should make sure that there is a sober person with you that is not using drugs and that this person can administer intranasal Narcan in the event that you stop breathing. Follow-up with your doctor in 2 days. Please return to the emergency department if your symptoms get worse or if you develop any symptoms that are concerning to you. Prescriptions: No Action methadone [Methadone Intensol] 10 mg/mL Concentrate 95 mg PO DAILY clonidine HCl 0.1 mg tablet 0.1 mg PO TID topiramate 25 mg tablet 25 mg PO DAILY docusate sodium 100 mg capsule 100 mg PO BID prazosin 2 mg capsule 2 mg PO BID gabapentin 600 mg Tablet 600 mg PO TID nystatin 100,000 unit/gram ointment 1 appl topical BID 14 Days Qty: 30 1RF Interventions: ED Discharge Assessment Last Done: 08/28/24 06:23 Discharge Date/Time: 08/28/24 06:38 Print Language: Russian
[2024-08-27 11:42] LABS: Venous Blood Gas Refer to POC result
[2024-08-27 11:47] LABS: VBG HCO3 28 mmol/L (22-26); VBG O2 % Saturation 91.0 %
[2024-08-27 11:50] LABS: Appearance Urine Clear; Glucose Urine UA Negative (Negative); PH 6.0 (5.0-9.0); Specific Gravity - Urine >= 1.030 (1.005-1.025); UMIC TRIGGER UACC YES
[2024-08-27 11:58] LABS: Alanine Aminotransferase 23 U/L (0-31); Albumin Level 3.9 g/dL (3.5-5.0); Alkaline Phosphatase 60 U/L (39-117); Anion Gap 10 (12-20); Aspartate Amino Transferase 40 U/L (5-31); Blood Urea Nitrogen 11 mg/dL (9-16); Calcium 9.1 mg/dL (8.4-10.2); Carbon Dioxide 24 mmol/L (22-29); Chloride 111 mmol/L (96-108); Creatinine Clr Calc Pharmacy 103.3; Estimated Glomerular Filt Rate > 60; Magnesium 2.2 mg/dL (1.6-2.6); Potassium 3.7 mmol/L (3.3-5.1); Sodium 141 mmol/L (135-145); Total Protein 7.7 g/dL (6.5-8.0)
[2024-08-27 12:02] LABS: B Type Natriuretic Peptide 41 pg/mL (<100)
[2024-08-27 12:02] LABS: UACC Culture Trigger YES
[2024-08-27 12:02] LABS: Cannabinoid Screen Urine Not Detected (Not Detect)
[2024-08-27 12:04] LABS: Troponin-I High Sensitivity < 2.7 ng/L (<3.5-17.0)
[2024-08-27 12:22] LABS: MANUAL DIFF FLAG NO
[2024-08-27 12:33] LABS: Hematocrit 38.4 % (37.0-47.0); Hemoglobin 13.3 g/dl (12.0-16.0); Imm Gran Abs Auto 0.01 X10*3/uL (0.00-0.03); Imm Gran Pct Auto 0.2 % (0.0-0.4); Lymphocytes Absolute Auto 2.1 X10*3/uL (1.2-4.9); Mean Corpuscular HGB Conc 34.6 g/dl (31.0-35.0); Mean Corpuscular Hemoglobin 31.5 pg (27.0-33.0); Mean Corpuscular Volume 91.0 fL (80.0-98.0); NRBC Abs Auto 0.000 X10*3/uL (0.0-0.012); NRBC Pct Auto 0.0 /100WBC (0.0-0.2); Platelet Count 329 X10*3/uL (160-400); Red Blood Count 4.22 X10*6/uL (4.20-5.50); White Blood Count 5.7 X10*3/uL (4.8-10.8)
--- NOTE | 2024-08-27 16:27 | MHC.EDTECH ---
Pt more alert and awake compared to arrival. Pt was boosted, head of the bed up, PO trial with pudding and ariadne caitlyn with positive progress, aware
[2024-08-27] MEDS: Naloxone HCl Nasal TAKE HOME 4 MG SPRAY 8 MG NOSTRILALT (17:33)
--- NOTE | 2024-08-27 20:11 | MHC.CARE ---
Confirmed referral received by marialuisa Alaniz. Advised pt self present in the morning
--- NOTE | 2024-08-27 21:26 | MHC.EDTECH ---
pt ambulated in the hallways with a steady gait and zero assistance, RN made aware
[2024-08-28 01:11] VITALS: BP 108/81; PULSE 61; RESP 16; TEMP 37; O2SAT 97
[2024-08-28 06:14] VITALS: BP 100/65; PULSE 58; RESP 16; TEMP 37.1; O2SAT 96
[2024-08-28 06:23] VITALS: BP 100/65; PULSE 58; RESP 16; TEMP 37.1; O2SAT 96
== END 2024-08-28 06:38 | disposition home or self-care (01) ==
PROVIDERS: Emergency Provider Emergency Medicine Emergency Medical Services
DX: R41.82 Altered mental status, unspecified (principal); I95.2 Hypotension due to drugs; R00.1 Bradycardia, unspecified; N39.0 Urinary tract infection, site not specified; R94.31 Abnormal electrocardiogram [ECG] [EKG]; T40.3X5A Adverse effect of methadone, initial encounter; Y92.9 Unspecified place or not applicable; F14.10 Cocaine abuse, uncomplicated; F17.210 Nicotine dependence, cigarettes, uncomplicated; Z79.899 Other long term (current) drug therapy; Z51.81 Encounter for therapeutic drug level monitoring
CPT/HCPCS: 36415; 71045; 80048; 80076; 80307; 81001; 82550; 82803; 83605; 83735; 83880; 84443; 84484; 84702; 85025; 85652; 86140; 87040; 87086; 87088; 87186; 93005; 96361; 96374; 99285; 99291; 99292; J0696; S9485

== ENCOUNTER → 2024-08-27 11:05 | Outpatient (BNV) | payer MEDICAID, SELFPAY | PROVIDERS: Emergency Provider Emergency Medicine Emergency Medical Services; Visit Provider Internal Medicine Cardiovascular Disease | DX: R00.1 Bradycardia, unspecified (principal) | CPT/HCPCS: 93010 ==

== ENCOUNTER → 2024-08-27 11:34 | Outpatient (BNV) | payer MEDICAID, SELFPAY | PROVIDERS: Emergency Provider Emergency Medicine Emergency Medical Services; Visit Provider Radiology Diagnostic Radiology | DX: R40.0 Somnolence (principal) | CPT/HCPCS: 71045 ==

== ENCOUNTER 2024-12-27 11:18 | Emergency (ER) | payer MEDICAID, SELFPAY ==
[2024-12-27] VITALS (8 sets, daily range): BP systolic 85–146; BP diastolic 60–90; PULSE 70–92; RESP 5–18; TEMP 36.6–36.8; O2SAT 94–99; BMI 23.8
--- NOTE | ~2024-12-27 | XR_ITS ---
CLINICAL HISTORY: OD 1 view chest x-ray Comparison: CR/SR - XR CHEST 1 VIEW - 08/27/24 12:09 EDT Findings: The lung volumes are low without consolidation or effusion. Cardiomediastinal silhouette is stable. No acute fracture. IMPRESSION: No acute cardiopulmonary findings. This document has been electronically signed by: Asa Dunn MD on 12/27/2024 13:33:53
--- NOTE | ~2024-12-27 | CT_ITS ---
CLINICAL HISTORY: fall, headstrike, found down CT head without contrast Comparison: CT/REG/SR - CT HEAD/BRAIN WO IV CON - 08/20/23 19:28 EDT Findings: No intra-axial mass, midline shift, hydrocephalus, or acute hemorrhage. No significant atrophy-like change or white matter disease. Mucosal thickening throughout the paranasal sinuses. The orbits are within normal limits. No skull fracture. IMPRESSION: 1. No acute intracranial findings. This document has been electronically signed by: Damien Saleh DO on 12/27/2024 21:54:42
--- NOTE | 2024-12-27 11:45 | PC.NURSE ---
patient responds w/ sternal rub. changed into hospital attire, belongings placed in [facility] shelf 3. deon acuña at this time, potentially named nick however does not have any form of ID on her, no cell phone.
--- NOTE | 2024-12-27 11:53 | ED_ITS ---
HPI - Overdose General Chief Complaint: Overdose Stated Complaint: OD, 1 bag of heroin, no narcan given Time Seen by Provider: 12/27/24 11:24 Source: patient, EMS and RN notes reviewed Mode of arrival: EMS Limitations: other (somnolent ) History of Present Illness ED Provider: MADHU Loera HPI Narrative: 44-year-old female with medical history of cocaine use disorder, opioid use disorder presents to the ED by EMS after being found unresponsive outside of [facility] [place]. Nasal Narcan was given prior to arrival. Patient responsive to sternal rub but quickly falling back to sleep. Related Data Home Medications ?Medication ?Instructions ?Recorded ?Confirmed methadone 10 mg/mL oral 135 mg PO DAILY 11/24/23 concentrate (Methadone Intensol) Previous Rx's ?Medication ?Instructions ?Recorded cefuroxime axetil 500 mg tablet 500 mg PO BID 7 days # 14 tabs 12/27/24 Allergies Allergy/AdvReac Type Severity Reaction Status Date / Time No Known Allergies Allergy Verified 12/27/24 20:33 Review of Systems 2 Review of Systems: Unable to complete accurate ROS as patient is somnolent, and not answering my questions PMFSH Past Medical History Attestation statement: The following information was validated with the patient. Source: old records reviewed and nursing notes reviewed Medical History Cocaine use disorder Opioid use disorder Social History Social History Household Members: Other Do you presently have visiting nurse or other home services: No Alcohol intake: current Alcohol intake frequency: 0-2 drinks per day Alcohol type: beer Patient Tobacco Use Status: Current someday Tobacco user Tobacco use type: Cigarette Cigarettes Per Day: 10 Substance Use Type: Crack/Cocaine service: No Physical Exam 2 Vital Signs: Vital Signs: Last Vital Signs Temp 98.0 F 12/28/24 11:41 Pulse 74 12/28/24 11:41 Resp 14 12/28/24 11:41 BP 99/66 12/28/24 11:41 Pulse Ox 98 12/28/24 11:41 O2 Del Method Room Air 12/28/24 11:41 O2 Flow Rate 2 12/27/24 14:45 BMI result Body Mass Index 23.8 GENERAL APPEARANCE: A&O x3, disheveled, somnolent will awake with sternal rub but falls back to sleep quickly , no acute distress. HEENT: ?NC, AT. MMM. EOMI, clear conjunctiva, Miotic pupils, oropharynx clear. NECK: ?Supple without lymphadenopathy.? No stiffness or restricted ROM. HEART:? Normal rate and regular rhythm, normal S1/S2, no m/r/g LUNGS:? CTAB, moving air well. No crackles or wheezes are heard. ABDOMEN: ?Soft, nontender, nondistended BACK: No CVAT, no obvious deformity. EXTREMITIES: ?Without cyanosis, clubbing or edema. B/L hands with several track brothers and scabs, no warmth or edema to the area NEUROLOGICAL: ?Grossly nonfocal. Patient is somnolent and falls asleep quickly but does react and respond to painful stimuli, patient is moving all 4 extremities and withdrawing from painful stimuli. Skin: ?Warm and dry without any rash. Course Reevaluation(s) Reevaluation #1: I Ann Espinoza PA-C have accepted care of the patient and signed out pending imaging, monitoring overnight, pending respite bed tomorrow CT brain:IMPRESSION: 1. No acute intracranial findings. Reevaluation #2: Time: 22:12 Date: 12/27/24 Provider: BUDDY Sparks Patient in physician observation for psychiatric evaluation.? No acute events reported overnight. No current complaints. VS stable.? Patient is in bed search status/pending CARE team evaluation. Will continue to monitor. Time: 22:12 Reevaluation #3: 12/28/24 Provider: Ector Mishra MD 05:21 Patient in physician observation for detox placement.? No acute events reported overnight. No current complaints. VS stable.? Patient was evaluated by Recovery team for accidental opiate overdose. Urine tox screen was positive for opiates, methadone, fentanyl, cocaine, marijuana (THC). Urinalysis was positive for nitrates and leukocyte esterase. Microscopic revealed 0-2 RBCs, 0-5 WBCs, 0 2 squamous cells and 4+ bacteria. She was given 1 dose of cefuroxime 500 mg orally for possible UTI. The patient is willing to go to detox therefore she has a detox bed search. Will continue to monitor. 08:45 The patient was given her usual dose of methadone 135 mg orally. She states she still felt like she was withdrawing therefore I gave her a 2nd dose of methadone 20 mg orally. 10:44 Patient states she is feeling significantly better and does not feel like she is withdrawing at this time. The patient is not somnolent in his had no respiratory issues with a higher dose of methadone. 11:28 Physician observation ended at 11:28 hours.The patient was evaluated by our recovery team clinician and was accepted at [facility] in [facility]. Patient initially agreed to go but at this time she states that she wants to go home. She will follow up with her methadone clinic and I also gave her information for our [facility]. The patient will be discharged with a intranasal Narcan. Medications Administered Discontinued Medications Generic Name Dose Route Start Last Admin Trade Name Freq PRN Reason Stop Dose Admin Lactated Ringer's 1,000 mls @ 999 mls/hr 12/27/24 14:48 12/27/24 18:10 Lr IV 12/27/24 15:48 Not Given .Q1H1M ONE Ceftriaxone Sodium 2 gm/ 50 mls @ 100 mls/hr 12/27/24 20:18 12/27/24 21:03 Sodium Chloride IV 12/27/24 20:47 Infused ONCE ONE Infusion Methadone HCl 135 mg 12/28/24 08:10 12/28/24 08:41 Methadone Hcl 20 Mg/2 Ml Oral.Conc PO 12/28/24 08:11 135 mg ONCE ONE Administration Methadone HCl 20 mg 12/28/24 08:41 12/28/24 08:50 Methadone Hcl 20 Mg/2 Ml Oral.Conc PO 12/28/24 08:42 20 mg ONCE ONE Administration Naloxone HCl 0.2 mg 12/27/24 13:04 12/27/24 13:28 Naloxone Hcl 0.4 Mg/Ml Vial IVPUSH 12/27/24 13:05 0.2 mg STAT STA Administration Naloxone HCl 0.2 mg 12/27/24 13:26 12/27/24 14:56 Naloxone Hcl 0.4 Mg/Ml Vial IVPUSH 12/27/24 13:27 Not Given STAT STA Naloxone HCl 0.2 mg 12/27/24 17:32 12/27/24 17:48 Naloxone Hcl 0.4 Mg/Ml Vial IVPUSH 12/27/24 17:33 0.2 mg STAT STA Administration Naloxone HCl 8 mg 12/27/24 21:37 12/28/24 11:33 Naloxone Hcl Nasal Take Home 4 Mg [place] NOSTRILALT 12/27/24 21:38 Not Given ONCE ONE Naloxone HCl 8 mg 12/28/24 11:27 12/28/24 11:40 Naloxone Hcl Nasal Take Home 4 Mg [place] NOSTRILALT 12/28/24 11:28 8 mg ONCE ONE Administration Medical Decision Making Medical Decision Making MDM Narrative: 44-year-old female with medical history of cocaine use disorder, opioid use disorder presents to the ED by EMS after being found unresponsive outside of [facility] [place]. Nasal Narcan was given prior to arrival. Patient responsive to sternal rub but quickly falling back to sleep. EKG reveals normal sinus rhythm without significant ST-elevation/depression, and a prolonged QT of 490 MS, troponin undetectable at <2.7 Labs without leukocytosis/leukopenia, H&H stable, no electrolyte abnormality, lactic acid WNL at .6 CXR WNL VBG reveals a pH of 7.45 with no other derangement UA reveals positive nitrites, trace leukocyte esterase, 4+ urine bacteria PUENTE positive for opiates, methadone, fentanyl, cocaine, marijuana Course 20:09- Patient has been in the ED for 8 hours. She has received 0.2 mg IV Narcan x3 for a total of 0.6 mg. 2L NS IV fluids. Patient has been somnolent this whole time is now more awake. Patient states that she does not know what happened today, but does remember falling and hitting her head. She reports she used approximately 20 dollars of heroin that she injected. Patient states that she is interested in resources to decrease her use. Will obtain CT head/brain for further evaluation since patient states she fell and hit her head today, her overdose was accidental and was not trying to harm herself. Patient with evidence of UTI 2 g IV ceftriaxone given for bacterial coverage. Does not meet sepsis criteria. 21:26- patient's spoke with care team and stated she would like detox placement. Care team has checked but no beds are available at this time and will resume the search in the morning. Patient is agreeable to stay in the department for detox placement. Patient is still somnolent and falls asleep quickly. Patient was given resources by care team incase she wants to discharge before bed is found. I have placed an order for 1 dose of cefuroxime 500mg for tomorrow morning for UTI treatment. Differential Diagnosis Differential Diagnoses: The differential diagnosis associated with the presentation includes ICH Opioid intoxication Opioid withdrawal Pulmonary edema Pneumonia UTI Admission/Observation Consideration of admission/observation: Escalation of care including admission/observation considered Lab Data MDM Lab Attestation statement: I reviewed the patient's lab results. 12/27/24 12:53 12/27/24 12:53 Labs: Lab Results 12/27/24 12/27/24 12/27/24 Range/Units 12:47 12:53 13:00 WBC 6.6 (4.8-10.8) X10*3/uL RBC 4.29 (4.20-5.50) X10*6/uL Hgb 13.7 (12.0-16.0) g/dl Hct 39.0 (37.0-47.0) % MCV 90.9 (80.0-98.0) fL MCH 31.9 (27.0-33.0) pg MCHC 35.1 H (31.0-35.0) g/dl RDW 13.3 (11.0-16.0) % Plt Count 277 (160-400) X10*3/uL MPV 8.5 L (9.4-12.3) fL Immature Gran % (Auto) 0.3 (0.0-0.4) % Neut % (Auto) 72.0 (45-73) % Lymph % (Auto) 18.3 L (20-40) % [place] % (Auto) 8.1 (2-11) % Eos % (Auto) 0.8 (0-4) % Baso % (Auto) 0.5 (0-2) % Lymph # (Auto) 1.2 (1.2-4.9) X10*3/uL [place] # (Auto) 0.5 (0.1-1.2) X10*3/uL Eos # (Auto) 0.1 (0.0-0.4) X10*3/uL Baso # (Auto) 0.0 (0.0-0.2) X10*3/uL Abs Immat Gran (auto) 0.02 (0.00-0.03) X10*3/uL Absolute Neuts (auto) 4.7 (2.0-8.3) x10*3/uL Absolute Nucleated RBC 0.000 (0.0-0.012) X10*3/uL Nucleated RBC % (auto) 0.0 (0.0-0.2) /100WBC VBG pH 7.45 H (7.32-7.43) VBG pCO2 33 mmHg VBG pO2 94 mmHg VBG HCO3 23 (22-26) mmol/L VBG O2 Saturation 99.0 % VBG Base Excess 0.3 mmol/L Sodium 140 (135-145) mmol/L Potassium 4.4 (3.3-5.1) mmol/L Chloride 109 H (96-108) mmol/L Carbon Dioxide 21 L (22-29) mmol/L Anion Gap 14 (12-20) BUN 7 L (9-16) mg/dL Creatinine 0.56 (0.5-1.4) mg/dL Estim Creat Clear Calc 101.3 Estimated GFR > 60 POC Glucose 97 (60-115) mg/dL Random Glucose 101 (60-115) mg/dL Lactic Acid 0.6 (0.5-2.0) mmol/L Calcium 9.1 (8.4-10.2) mg/dL Magnesium 2.0 (1.6-2.6) mg/dL Total Bilirubin 0.4 (0.0-1.0) mg/dL AST 45 H (5-31) U/L ALT 26 (0-31) U/L Alkaline Phosphatase 59 (39-117) U/L Troponin I High Sens < 2.7 (<3.5-17.0) ng/L Total Protein 7.7 (6.5-8.0) g/dL Albumin 4.0 (3.5-5.0) g/dL Beta HCG, Quant < 2 mIU/mL Urine Color Urine Appearance Urine pH (5.0-9.0) Ur Specific [place] (1.005-1.025) Urine Protein (Neg-Trace) mg/dL Urine Glucose (UA) (Negative) mg/dL Urine Ketones (Negative) mg/dL Urine Blood (Negative) Urine Nitrite (Negative) Ur Leukocyte Esterase (Negative) Urine RBC (0-2) /HPF Urine WBC (0-5) /HPF Ur Squamous Epith Cells (0-2) /HPF Urine Bacteria (None Seen) Hyaline Casts (0-2) /LPF Salicylates (15-30) mg/dL Urine Opiates Screen (Not Detect) Ur Buprenorphine Scrn (Not Detect) ng/mL Ur Oxycodone Screen (Not Detect) ng/mL Urine Methadone Screen (Not Detect) ng/mL Urine Fentanyl Screen (Not Detect) Acetaminophen (<30) mcg/mL Ur Barbiturates Screen (Not Detect) Ur Phencyclidine Scrn (Not Detect) Ur Amphetamines Screen (Not Detect) U Benzodiazepines Scrn (Not Detect) Urine Cocaine Screen (Not Detect) U Marijuana (THC) Screen (Not Detect) 12/27/24 12/27/24 12/27/24 Range/Units 13:11 16:49 19:41 WBC (4.8-10.8) X10*3/uL RBC (4.20-5.50) X10*6/uL Hgb (12.0-16.0) g/dl Hct (37.0-47.0) % MCV (80.0-98.0) fL MCH (27.0-33.0) pg MCHC (31.0-35.0) g/dl RDW (11.0-16.0) % Plt Count (160-400) X10*3/uL MPV (9.4-12.3) fL Immature Gran % (Auto) (0.0-0.4) % Neut % (Auto) (45-73) % Lymph % (Auto) (20-40) % [place] % (Auto) (2-11) % Eos % (Auto) (0-4) % Baso % (Auto) (0-2) % Lymph # (Auto) (1.2-4.9) X10*3/uL [place] # (Auto) (0.1-1.2) X10*3/uL Eos # (Auto) (0.0-0.4) X10*3/uL Baso # (Auto) (0.0-0.2) X10*3/uL Abs Immat Gran (auto) (0.00-0.03) X10*3/uL Absolute Neuts (auto) (2.0-8.3) x10*3/uL Absolute Nucleated RBC (0.0-0.012) X10*3/uL Nucleated RBC % (auto) (0.0-0.2) /100WBC VBG pH (7.32-7.43) VBG pCO2 mmHg VBG pO2 mmHg VBG HCO3 (22-26) mmol/L VBG O2 Saturation % VBG Base Excess mmol/L Sodium (135-145) mmol/L Potassium (3.3-5.1) mmol/L Chloride (96-108) mmol/L Carbon Dioxide (22-29) mmol/L Anion Gap (12-20) BUN (9-16) mg/dL Creatinine (0.5-1.4) mg/dL Estim Creat Clear Calc Estimated GFR POC Glucose 83 (60-115) mg/dL Random Glucose (60-115) mg/dL Lactic Acid (0.5-2.0) mmol/L Calcium (8.4-10.2) mg/dL Magnesium (1.6-2.6) mg/dL Total Bilirubin (0.0-1.0) mg/dL AST (5-31) U/L ALT (0-31) U/L Alkaline Phosphatase (39-117) U/L Troponin I High Sens (<3.5-17.0) ng/L Total Protein (6.5-8.0) g/dL Albumin (3.5-5.0) g/dL Beta HCG, Quant mIU/mL Urine Color Yellow Urine Appearance Clear Urine pH 6.5 (5.0-9.0) Ur Specific [place] <= 1.005 (1.005-1.025) Urine Protein Negative (Neg-Trace) mg/dL Urine Glucose (UA) Negative (Negative) mg/dL Urine Ketones Negative (Negative) mg/dL Urine Blood Negative (Negative) Urine Nitrite Positive H (Negative) Ur Leukocyte Esterase Trace H (Negative) Urine RBC 0-2 (0-2) /HPF Urine WBC 0-5 (0-5) /HPF Ur Squamous Epith Cells 0-2 (0-2) /HPF Urine Bacteria 4+ (None Seen) Hyaline Casts 0-2 (0-2) /LPF Salicylates < 5.0 L (15-30) mg/dL Urine Opiates Screen POSITIVE H (Not Detect) Ur Buprenorphine Scrn Not Detected (Not Detect) ng/mL Ur Oxycodone Screen Not Detected (Not Detect) ng/mL Urine Methadone Screen Positive H (Not Detect) ng/mL Urine Fentanyl Screen POSITIVE H (Not Detect) Acetaminophen < 3 (<30) mcg/mL Ur Barbiturates Screen Not Detected (Not Detect) Ur Phencyclidine Scrn Not Detected (Not Detect) Ur Amphetamines Screen Not Detected (Not Detect) U Benzodiazepines Scrn Not Detected (Not Detect) Urine Cocaine Screen POSITIVE H (Not Detect) U Marijuana (THC) Screen POSITIVE H (Not Detect) Independent Interpretation I performed an independent interpretation of an: Plain X-Ray Interpretation: I personally interpreted the CXR which was negative for pulmonary edema, infiltrates, consolidations, I agree with the radiologist's interpretation Radiology Impression Discussion of test interpretation with radiology: I have reviewed the radiologist's reading. Radiologist Impression: CXR Findings: The lung volumes are low without consolidation or effusion. Cardiomediastinal silhouette is stable. No acute fracture. IMPRESSION: No acute cardiopulmonary findings. This document has been electronically signed by: Asa Dunn MD on 12/27/2024 13:33:53 Dictated By: Asa Dunn MD Signed By: <Electronically signed by Asa Dunn MD in OV> 12/27/24 1334 Independent Historian Clinical information obtained from an independent historian. History obtained from or confirmed by: EMS External Record Review External record reviewed: Inpatient record, Office record and Outpatient record Chronic Conditions Patient?s care impacted by: Other (Opiate use disorder, cocaine use disorder) Discharge Plan Discharge Clinical Impression: Drug overdose Patient Disposition: Home, Self-Care Additional Instructions: Your urine drug screen was positive for opiates, methadone, fentanyl, cocaine and marijuana. You were seen by our recovery team clinician. If you change your mind and want to go to a detox facility you can return to the emergency department, follow up with the methadone clinic or with our comprehensive Care Clinic. Your are being discharged home with intranasal Narcan. If you are going to continue to use heroin, you should make sure that there is a sober person with you that is not using drugs and that this person can administer intranasal Narcan in the event that you stop breathing. Continue taking your medications as prescribed by your providers Opiate use disorder You were seen in our Emergency Department today for treatment of opiate use disorder. You may have been dosed with medication for opiate use disorder (MOUD) in the form of suboxone or methadone. You may experience feeling some withdrawal symptoms and this is normal. The? dose in the Emergency Department is a starting dose and meant to be titrated up once you follow up with a clinic. Please do not feel discouraged, it is a process. The nurse has reviewed with you where to follow up and what information to bring with you, to continue treatment. You also may have been given naloxone (narcan) to take home with you. This medication is used to potentially treat opiate overdose. If you decide you want to stop or cut down on how much you?re using, you can call or walk into our outpatient Addiction Treatment office: [facility] (M-F 9am-5p) [address], [address] [phone] You may have been provided with safer injection?items, please take time to take care of YOU and your health. Use new supplies whenever possible to lessen the chances of infections and other illnesses.? ?If you need more supplies, please go [facility],? [address] [place] [address] OR you can call or text to coordinate delivery of safer supplies. You were also provided a list of several treatment providers in the area.? If you experience any worsening symptoms you cannot control please return to the ED or call 911. Please follow up at your next appointment. Things to look out for are fevers, chest pain, shortness of breath, severe pain, dizziness, fainting or any other concerns. Prescriptions: New cefuroxime axetil 500 mg tablet 500 mg PO BID 7 Days Qty: 14 0RF No Action methadone [Methadone Intensol] 10 mg/mL Concentrate 135 mg PO DAILY Interventions: ED Discharge Assessment Last Done: 12/28/24 11:41 Discharge Date/Time: 12/28/24 11:49 Print Language: Syriac
--- NOTE | 2024-12-27 11:53 | ECG_ITS ---
Test Reason : OD Blood Pressure : */* mmHG Vent. Rate : 81 BPM Atrial Rate : 81 BPM P-R Int : 134 ms QRS Dur : 80 ms QT Int : 422 ms P-R-T Axes : 48 1 15 degrees QTcB Int : 490 ms Normal sinus rhythm Minimal voltage criteria for LVH, may be normal variant ( R in aVL ) Prolonged QT Abnormal ECG No previous ECGs available Referred By: Mira Loera Electronically Signed By:
--- OUTSIDE RECORDS SUMMARY | 2024-12-27 12:30 | XMS_ITS | Encounter Summary ---
Author Organization [facility] Address [address] [place] [address] [place] [phone] Phone Care Team Providers Care Allergist/Immunologist Physician Name Role Phone Marsha Casper MD Primary Care Provider [phone] Marsha Casper MD Unavailable [phone] Christie Casper MD Unavailable [phone] Encounter Details Date Type Department Care Team (Late st Contact Info) Description 03/25/2019 Transcribe Orders Virtual Department [address] [place] [address] System, Provider Not In, [place] [address] TB (pulmonary tuberculosis) (Primary Dx) Social History Tobacco Use Types Packs/Day Years Used Date Smoking Tobacco: Never Assessed Comments Unknown Sex and Gender Information Value Date Recorded Sex Assigned at Female 05/18/2018 12:34 PM EDT Legal Sex Female 12:28 PM EDT Gender Identity Female 05/18/2018 12:34 PM EDT Sexual Orientation Not on file documented as of this encounter Plan of Treatment Not on file documented as of this encounter Visit Diagnoses Diagnosis TB (pulmonary tuberculosis)- Primary Unspecified pulmonary tuberculosis, confirmation unspecified documented in this encounter Care Teams Allergist/Immunologist Physician Relationship Specialty Start Date End Date Marsha Casper MD [address] [place] [phone] [email or web address] PCP - General Family Medicine 05/18/18 Marsha Caspre MD [address] [place] [phone] [email or web address] Insurance Assigned Provider 09/08/18 10/14/22 Christie Casper MD [address] [place] [phone] [email or web address] Assigned Provider 12/20/24 documented as of this encounter Additional Source Comments The information contained in this document represents components of the legal health record. It is not the complete legal health record.[facility]
--- OUTSIDE RECORDS SUMMARY | 2024-12-27 12:30 | XMS_ITS | Clinical Summary ---
Author Organization [facility] Address [address] [place] [address] Care Team Providers Care Educational Technician Name Role Phone Unavailable Primary Care Provider Unavailabl e Social History Tobacco Use Types Packs/Day Years Used Date Smoking Tobacco: Never Assessed Sex and Gender Information Value Date Recorded Sex Assigned at Not on file Gender Identity Not on file Sexual Orientation Not on file Plan of Treatment Not on file
--- OUTSIDE RECORDS SUMMARY | 2024-12-27 12:30 | XMS_ITS | Clinical Summary ---
Author Organization [facility] Address [address] [place] [address] Phone Care Team Providers Care Manufacture Specialist Name Role Phone Marsha Casper MD Primary Care Provider [phone] Christie Casper MD Unavailable [phone] Allergies Active Allergy Reactions Criticality Noted Date Comments Bupropion Hcl 05/18/2018 Medications * This document contains information received from the source organization and may not represent a complete record from that organization. DULoxetine (CYMBALTA) 60 MG capsule Take 1 capsule (60 mg total) by mouth daily. 30 capsule 08/26/2019 Active gabapentin (NEURONTIN) 300 MG capsule Take 2 capsules (600 mg total) by mouth every 8 (eight) hours. 180 capsule 08/25/2019 Active traZODone (DESYREL) 50 MG tablet Take 1 tablet (50 mg total) by mouth nightly at bedtime as needed. 30 tablet 08/25/2019 Active Active Problems Problem Noted Date Diagnosed Date Unspecified mood (affective) disorder 2019 Encounters Date Type Department Care Team Description 11/03/2024 [facility] RISK SCORES SYSTEM GENERATED External System Generated Encounter [address] [place] [id number] Unknown, Unknown, from Last 3 Months Family History Medical History Relation Comments Diabetes Mother Relation Status Comments Mother Social History Tobacco Use Types Packs/Day Years Used Date Smoking Tobacco: Every Day Cigarettes Smokeless Tobacco: Never Tobacco Cessation:Ready to Q uit: No Alcohol Use Standard Drinks/Week Comments Yes 4 (1 standard drink = 0.6 oz pur e alcohol) Education Answer Date Recorded Are you interested in more education? Not on nacho e 06/02/2022 Are you concerned about learning? Not on file 06/02/2022 No 06/02/2022 No 06/02/2022 Digital Access Answer Date Recorded No 07/01/2022 No 07/01/2022 No 07/01/2022 Reliable internet access at home? Not on file 07/01/2022 Device with a working camera? Not on file Comments Unknown Sex and Gender Information Value Date Recorded Sex Assigned at Female 05/18/2018 12:34 PM EDT Legal Sex Female 12:28 PM EDT Gender Identity Female 05/18/2018 12:34 PM EDT Sexual Orientation Not on file Last Filed Vital Signs Vital Sign Reading Time Taken Comments Blood Pressure 99/68 08/25/2019 9:00 AM EDT Pulse 67 08/25/2019 9:00 AM EDT Temperature 36.3 C (97.3 F) 08/25/2019 9:00 AM EDT Respiratory Rate 20 08/24/2019 4:11 PM EDT Oxygen Saturation 100% 08/25/2019 9:00 AM EDT Inhaled Oxygen Concentration - - Weight 62.7 kg (138 lb 3.2 oz) 2019 11:34 AM EDT Height 149.9 cm (4' 11 ) 2019 11:34 AM EDT Body Mass Index 27.91 2019 11:34 AM EDT Plan of Treatment Health Maintenance Due Date Last Done Comments DEPRESSION SCREENING 1992 SMOKING Hx and SMOKELESS TOBACCO SCREENING 1993 HIV ONE-TIME SCREENING (18-65 YEARS) 1998 PAP SMEAR 2001 MAMMOGRAM 2020 INFLUENZA VACCINE (#1) 2024 , 04/01/2019, 03/06/2017, Additional history exists COVID-19 VACCINE (1 - 2024- season) 2024 Adult Td,Tdap Booster 01/15/2027 01/15/2017 , 02/27/2013, 02/26/2009 PNEUMOCOCCAL VACCINES (0-49 years) (3 of 3 - PCV20 or PCV21) 2030 10/09/2013, 10/08/2013 HEPATITIS A VACCINES Aged Out 10/09/2013, 04/08/19 13 No longer eligible based on patient's age to complete this topic HEPATITIS C SCREENING Completed 09/05/2018 HIB VACCINES Aged Out No longer eligi ble based on patient's age to complete this topic MENINGOCOCCAL VACCINES (ACWY) Aged Out No longer eligible based on patient's age to complete this topic MENINGOCOCCAL VACCINES (B) Aged Out N o longer eligible based on patient's age to complete this topic Medical Devices Not on file Insurance [facility] [place] [address] [place] [id number] ACO [facility] [place] [id number] Advance Directives For more information, please contact: [phone] (9AM - 5PM [facility], Sunday-Sunday) * Full Code (Presumed) (Latest Code Status on File) Date Activated Date Inactivated Comments 2019 10:55 AM Care Teams Manufacture Specialist Relationship Specialty Start Date End Date Marsha Casper MD [address] [place] [phone] [email or web address] PCP - General Family Medicine 05/18/18 Christie Casper MD [address] [place] [phone] Insurance Assigned Provider 12/20/24 Additional Source Comments The information contained in this document represents components of the legal health record. It is not the complete legal health record.[facility]
[2024-12-27 12:51] LABS: Glucose, Whole Blood 97 mg/dL (60-115)
[2024-12-27 12:59] LABS: MANUAL DIFF FLAG NO
[2024-12-27 13:00] LABS: Hematocrit 39.0 % (37.0-47.0); Hemoglobin 13.7 g/dl (12.0-16.0); Imm Gran Abs Auto 0.02 X10*3/uL (0.00-0.03); Imm Gran Pct Auto 0.3 % (0.0-0.4); Lymphocytes Absolute Auto 1.2 X10*3/uL (1.2-4.9); Mean Corpuscular HGB Conc 35.1 g/dl (31.0-35.0); Mean Corpuscular Hemoglobin 31.9 pg (27.0-33.0); Mean Corpuscular Volume 90.9 fL (80.0-98.0); NRBC Abs Auto 0.000 X10*3/uL (0.0-0.012); NRBC Pct Auto 0.0 /100WBC (0.0-0.2); Platelet Count 277 X10*3/uL (160-400); Red Blood Count 4.29 X10*6/uL (4.20-5.50); White Blood Count 6.6 X10*3/uL (4.8-10.8)
[2024-12-27 13:05] LABS: Venous Blood Gas Refer to POC result
[2024-12-27 13:06] LABS: VBG HCO3 23 mmol/L (22-26); VBG O2 % Saturation 99.0 %
[2024-12-27 13:21] LABS: Troponin-I High Sensitivity < 2.7 ng/L (<3.5-17.0)
[2024-12-27 13:22] LABS: Alanine Aminotransferase 26 U/L (0-31); Albumin Level 4.0 g/dL (3.5-5.0); Alkaline Phosphatase 59 U/L (39-117); Anion Gap 14 (12-20); Aspartate Amino Transferase 45 U/L (5-31); Blood Urea Nitrogen 7 mg/dL (9-16); Calcium 9.1 mg/dL (8.4-10.2); Carbon Dioxide 21 mmol/L (22-29); Chloride 109 mmol/L (96-108); Creatinine Clr Calc Pharmacy 101.3; Estimated Glomerular Filt Rate > 60; Magnesium 2.0 mg/dL (1.6-2.6); Potassium 4.4 mmol/L (3.3-5.1); Sodium 140 mmol/L (135-145); Total Protein 7.7 g/dL (6.5-8.0)
[2024-12-27 13:34] LABS: Acetaminophen LAB < 3 mcg/mL (<30); Salicylate < 5.0 mg/dL (15-30)
--- NOTE | 2024-12-27 14:19 | PC.NURSE ---
initial IV placed in left thumb, narcan administered IV, patient awoke for a period and was able to verify her name. IV appears to be kinked, new IV placed in left foot. patient responds to painful stimuli.
--- NOTE | 2024-12-27 14:46 | PC.NURSE ---
fluids have infused, patient hypotensive 85/60. verbal order for additional liter of NS to infuse. wakes to verbal and painful stimuli
--- NOTE | 2024-12-27 16:10 | PC.NURSE ---
appears more awake at this time, moving self in the bed. responding to questions
[2024-12-27 17:02] LABS: Appearance Urine Clear; Glucose Urine UA Negative (Negative); PH 6.5 (5.0-9.0); Specific Gravity - Urine <= 1.005 (1.005-1.025); UMIC TRIGGER UACC YES
[2024-12-27 17:24] LABS: Cannabinoid Screen Urine POSITIVE (Not Detect)
[2024-12-27 18:01] LABS: UACC Culture Trigger YES
[2024-12-27 19:45] LABS: Glucose, Whole Blood 83 mg/dL (60-115)
--- NOTE | 2024-12-27 19:50 | PC.NURSE ---
this rn assumed care of pt, pt resting in stretcher and awake to name at this time. POC 86 and vss. pt set up with dinner.
--- NOTE | 2024-12-27 20:08 | PC.NURSE ---
PA at bedside with pt, pt speaking in full clear sentences and remains eating at this time. plan for careteam for recovery resources
[2024-12-28 00:37] VITALS: BP 90/49; PULSE 64; RESP 14; TEMP 36.9; O2SAT 94
--- NOTE | 2024-12-28 01:24 | PC.NURSE ---
pt assisted onto bedpanper request at this time, vss and pt awake and alert
[2024-12-28 06:17] VITALS: BP 102/54; PULSE 89; RESP 18; TEMP 36.6; O2SAT 100
--- NOTE | 2024-12-28 08:18 | HE.PHANOTE ---
Re Methadone pt receives 135mg from [facility] in [place]. Last dose was 12/26/24 @[id number]
[2024-12-28] MEDS: methADONE HCl 20 MG/2 ML ORAL.CONC 135 MG PO (08:41)
[2024-12-28] MEDS: methADONE HCl 20 MG/2 ML ORAL.CONC PO (08:50)
--- NOTE | 2024-12-28 09:21 | PHA.MEDREC ---
Pharmacy Consult ? Medication Reconciliation Pharmacy has completed the medication reconciliation. Spoke with patient at bedside, she states she takes no prescriptions at home. No pharmacy claims either.
--- NOTE | 2024-12-28 10:00 | PC.NURSE ---
Methadone dose confirmed with N, last dosed 12/26/24 with 135mg. Ambulated independently to restroom. VSS. Awaiting detox placement.
[2024-12-28 10:12] VITALS: BP 91/57; PULSE 60; RESP 12; O2SAT 97
--- NOTE | 2024-12-28 11:07 | MHC.RECOVRN ---
PT ACCEPTED AT [facility] ([facility]). SHE IS EXPECTED TO BE THERE [place]. WILL BE GOING VIA LY TO BE CALLED BY THIS RN. DR DYE, MANAGER INTEL, & PRIMARY RN ALL AWARE.
[2024-12-28 11:27] VITALS: BP 99/66; PULSE 74; RESP 14; TEMP 36.7; O2SAT 98
[2024-12-28] MEDS: Naloxone HCl Nasal TAKE HOME 4 MG SPRAY 8 MG NOSTRILALT (11:40)
[2024-12-28 11:41] VITALS: BP 99/66; PULSE 74; RESP 14; TEMP 36.7; O2SAT 98
== END 2024-12-28 11:49 | disposition home or self-care (01) ==
PROVIDERS: Emergency Provider Emergency Medicine Emergency Medical Services
DX: T40.1X1A Poisoning by heroin, accidental (unintentional), initial encounter (principal); N39.0 Urinary tract infection, site not specified; Y92.89 Other specified places as the place of occurrence of the external cause; Z72.0 Tobacco use
CPT/HCPCS: 36415; 70450; 71045; 80053; 80143; 80179; 80307; 81001; 81003; 82803; 82947; 83605; 83735; 84484; 84702; 85025; 87040; 87086; 87088; 87186; 93005; 96365; 96375; 96376; 99285; J0696; J2312; S9485

== ENCOUNTER → 2024-12-27 12:45 | Outpatient (BNV) | payer MEDICAID, SELFPAY | PROVIDERS: Emergency Provider Emergency Medicine Emergency Medical Services; PCP Nurse Practitioner Family; Visit Provider Radiology Vascular & Interventional Radiology | DX: S09.90XA Unspecified injury of head, initial encounter (principal); Z04.3 Encounter for examination and observation following other accident; T50.901A Poisoning by unspecified drugs, medicaments and biological substances, accidental (unintentional), initial encounter | CPT/HCPCS: 70450; 71045 ==